=== PATIENT | female | born 1970 | race Caucasian/White ===

== ENCOUNTER 2017-07-11 02:46 | Observation (INO) ==
[2017-07-11 03:04] LABS: Basophils # 0.1 K/mm3 (0-0.2); Basophils % 0.6 % (0.1-2.0); Eosinophils # 0.9 K/mm3 (0.0-0.4); Eosinophils % 4.7 % (0.1-12.0); Hematocrit 43.5 % (37.0-47.0); Lymphocytes # 5.4 K/mm3 (0.7-4.5); Lymphocytes % 29.6 K/mm3 (10-50); Mean Corpuscular HGB Conc 32.1 g/dL (31.8-35.4); Mean Corpuscular Hemoglobin 31.8 pg (27.0-31.2); Monocytes # 0.8 K/mm3 (0.1-1.0); Monocytes % 4.6 % (1.7-9.3); Neutrophils # 11.1 K/mm3 (1.8-7.8); Neutrophils % 60.6 % (37.0-80.0); Platelet Count 425 K/mm3 (142-424); White Blood Count 18.3 K/mm3 (4.8-10.8)
[2017-07-11 03:06] LABS: Appearance,Urine CLEAR (Clear); Bilirubin,Urine Negative (Negative); Blood, Urine Negative (Negative); Color,Urine YELLOW (Yellow); Glucose,Urine (UA) Negative (Negative); Ketones,Urine Negative (Negative); Leukocyte Esterase,Urine Negative (Negative); Microscopic, Urine URINE MICROSCOPIC (MICROSCOPIC); PH,Urine 5.5 (5.0-8.5); Protein,Urine Negative (Negative); Urobilinogen,Urine 0.2 EU/dl (0.2)
[2017-07-11 03:11] LABS: Activated Partial Thrombo Time 23.6 seconds (23.6-34.0); INR 0.93 (0.9-1.1)
[2017-07-11 03:14] LABS: ABG Base Excess -0.2 mmol/L (-2.4-2.3); ABG HCO3 23.9 mmhg (22.0-26.0); ABG Oxygen Saturation 97 % (90-100); ABG PCO2 35.9 mmhg (35.0-45.0); ABG PH 7.44 mmol/L (7.35-7.45); ABG PO2 96.4 mmhg (80-100)
[2017-07-11 03:16] LABS: Allen's Test Patient Unable; Oxygen 21% %
[2017-07-11 03:20] LABS: Amphetamine/Metha Screen,Urine Negative ng/mL (<1000); Barbiturates Screen,Urine Negative ng/mL (<200); Benzodiazepines Screen,Urine Negative ng/mL (200); Cannabinoid Screen,Urine Negative ng/mL (<50); Cocaine Screen,Urine Negative ng/g (<300); Methadone Screen,Urine Negative ng/mL (<300); Opiate Screen,Urine Negative ng/mL (<300); Phencyclidine Screen,Urine Negative ng/mL (<25)
[2017-07-11 03:26] LABS: D-Dimer < 100 ng/mL (0-400)
[2017-07-11 03:37] LABS: Albumin/Globulin Ratio 1.1 (1.1-1.8); Anion Gap 14.1 mEq/L (5-15); Bilirubin,Total 0.1 mg/dL (0.2-1.0); Calcium 9.7 mg/dL (8.5-10.1); Creatine Kinase 65 U/L (26-192); Globulin 3.7 gm/dl (1.3-3.2); Potassium 4.1 mmoL/L (3.5-5.1); Salicylate 5.5 mg/dL (2.8-20.0); Total Protein,Serum 7.7 gm/dL (6.4-8.2)
[2017-07-11 03:43] LABS: Acetaminophen 0 ug/mL (10-30); Ethyl Alcohol 0 mg/dL (0-99)
[2017-07-11 04:37] LABS: Bacteria,Urine Trace /lpf; Squamous Epithelial Cell,Urine Occasional #/hpf (0-5); WBC,Urine Occasional #/hpf (0-3)
[2017-07-11 05:07] LABS: Lymphocytes % 17 % (10-50); Monocytes % 7 % (2-9); Neutrophils % 76 % (42-76); RBC Morphology Normal; Total Cells Counted 100
--- NOTE | 2017-07-11 05:43 | Emergency Department Note ---
ED Disposition Clinical Impression: Leukocytosis Altered mental status Qualifiers: Altered mental status type: unspecified Qualified Code(s): R41.82 - Altered mental status, unspecified Accidental overdose Qualifiers: Encounter type: initial encounter Qualified Code(s): T50.901A - Poisoning by unspecified drugs, medicaments and biological substances, accidental ( unintentional), initial encounter Disposition: Admitted As Inpatient Condition on Discharge: Fair Time of Disposition: 05:59 - Critical Care Critical Care Time: No Attestation: On 07/11/17, the high probability of a clinically significant, sudden or life threatening deterioration of the following system(s) required my full and direct attention, intervention and personal management. The time I documented below is in addition to time spent performing reported procedures but includes the following listed in this critical care notation. Medical Decision Making - Medical Records Medical records reviewed: Yes: I reviewed the patient's medical records. - Jose Francisco Inquiry Pt receiving controlled substance: No Vital Signs: 07/11/17 02:47 07/11/17 03:50 07/11/17 06:19 Temperature 98.7 F 98.7 F Temperature Source Oral Oral Pulse Rate 90 Pulse Rate [Right Radial] 115 H 92 H Respiratory Rate 20 18 20 Blood Pressure 124/70 Blood Pressure [Right Arm] 117/56 130/80 Blood Pressure Mean [Right Arm] 76 96 Blood Pressure Source [Right Arm] Automatic Cuff Blood Pressure Position [Right Arm] Supine 02 Sat by Pulse Oximetry 99 94 L Oxygen Delivery Method Nasal Cannula Room Air Oxygen Flow Rate (LPM) 2 - Lab Data Lab results reviewed: Yes: I reviewed the patient's lab results. Lab Results 07/11/17 02:40: PT 10.0, INR 0.93, APTT 23.6, D-Dimer < 100 07/11/17 02:40: Sodium 137, Potassium 4.1, Chloride 98, Carbon Dioxide 29, Anion Gap 14.1, BUN 17, Creatinine 0.84, Estimated Creat Clear 150, Estimated GFR 73, Est GFR ( Amer) 88, Glucose 124 H, Calcium 9.7, Total Bilirubin 0.1 L, AST 23, ALT 56, Alkaline Phosphatase 116, Total Protein 7.7, Albumin 4.0 , Globulin 3.7 H, Albumin/Globulin Ratio 1.1 07/11/17 02:40: B-Natriuretic Peptide 11 07/11/17 02:40: WBC 18.3 H, RBC 4.40, Hgb 14.0, Hct 43.5, MCV 99.0, MCH 31.8 H, MCHC 32.1, RDW 13.0, Plt Count 425 H, MPV 8.0, Neut % (Auto) 60.6, Lymph % (Auto ) 29.6, [place] % (Auto) 4.6, Eos % (Auto) 4.7, Baso % (Auto) 0.6, Neut # (Auto) 11.1 H, Lymph # (Auto) 5.4 H, [place] # (Auto) 0.8, Eos # (Auto) 0.9 H, Baso # ( Auto) 0.1, Total Counted 100, Neutrophils % (Manual) 76, Lymphocytes % (Manual) 17, Monocytes % (Manual) 7, Platelet Estimate Normal, RBC Morphology Normal 07/11/17 02:40: Total Creatine Kinase 65, CK-MB (CK-2) 0.6, CK-MB (CK-2) Rel Index 0.9, Troponin I < 0.02, Salicylates 5.5, Acetaminophen 0 L, Plasma/Serum Alcohol 0 07/11/17 02:40: Urine Color Yellow, Urine Appearance Clear, Urine pH 5.5, Ur Specific [place] 1.010, Urine Protein Negative, Urine Glucose (UA) Negative, Urine Ketones Negative, Urine Blood Negative, Urine Nitrate Negative, Urine Bilirubin Negative, Urine Urobilinogen 0.2, Ur Leukocyte Esterase Negative, Urine RBC None, Urine WBC Occasional, Ur Squamous Epith Cells Occasional, Urine Bacteria Trace 07/11/17 02:40: Urine Opiates Screen Negative, Ur Barbituates Screen Negative, Ur Phencyclidine Scrn Negative, Ur Amphetamines Screen Negative, U Methamphetamines Scrn Negative, U Benzodiazepines Scrn Negative, Urine Cocaine Screen Negative, U Marijuana (THC) Screen Negative 07/11/17 02:40: Serum HCG, Qual Negative 07/11/17 02:50: Specimen Source Right radial, O2 % 21%, ABG pH 7.44, ABG pCO2 35.9, ABG pO2 96.4, ABG HCO3 23.9, ABG Total CO2 25.0, ABG O2 Saturation 97, ABG Base Excess -0.2, Kenny Test Patient unable 07/11/17 03:15: Lactic Acid 2.3 H Result diagrams: 07/11/17 02:40 07/11/17 02:40 Orders (Tests/Meds): ED MEDICATIONS Generic Name Dose Route Start Last Admin Trade Name Freq PRN Reason Stop Dose Admin Lactated Ringer's 1,000 mls @ 125 mls/hr 07/11/17 06:29 Lactated Ringer's 1000 Ml Bag IV 08/10/17 06:28 .Q8H CHARLI Discontinued Medications Generic Name Dose Route Start Last Admin Trade Name Freq PRN Reason Stop Dose Admin Sodium Chloride 1,000 mls @ 999 mls/hr 07/11/17 03:15 07/11/17 03:26 Sod Chlor 0.9% 1000ml Bag IV 07/11/17 04:15 999 mls/hr .Q1H1M CHARLI Administration Sodium Chloride 1,000 mls @ 999 mls/hr 07/11/17 03:45 07/11/17 04:31 Sod Chlor 0.9% 1000ml Bag IV 07/11/17 04:45 999 mls/hr .Q1H1M CHARLI Administration Ondansetron HCl 4 mg 07/11/17 03:05 07/11/17 03:26 Zofran 4mg/2ml Vial IV 07/11/17 03:06 4 mg ONCE ONE Administration ORDERS Category Date Time Status CT head/brain wo con Stat Cat Scan 07/11/17 02:50 Taken XR chest portable Stat Exams 07/11/17 02:51 Taken Blood Culture Stat Micro 07/11/17 03:15 Received - Radiology Data #1 Image(s): Chest Image Reviewed: Yes I reviewed the patient's radiology results, Yes I reviewed the patient's radiology image, Yes I have reviewed radiologist's interpretation Preliminary Findings: Normal/NAD - CT Data CT Scan: Head Time Received: 04:[address] Reviewed: Yes: I have reviewed the patient's CT results, I have viewed the radiologist's interpretation Preliminary Findings: Normal/NAD - Physician Consults Physician Consulted: Dr. Greenfield covering for Dr. Kingsley Time: 06:02 Reason -: Admission, Pt condition - Reevaluation(s) Time: 06:01 Reevaluation #1: She was reevaluated, she continues to remain confused, and hallucinating. He believes Donato Dain is a president, and today's Friday. Boyfriend is advising that she keeps mumbling and making statements without any sense. Altered Mental Status HPI - General Chief Complaint: Altered Mental Status Stated Complaint: AMS Time Seen by Provider: 07/11/17 02:55 Mode of Arrival: EMS Source of Information: Significant Other Limitations: Altered Mental Status Description of Symptoms (Recalled from ER Triage Doc. by RN): PT PRESENTS TO ED WITH ALTERED MENTAL STATUS, POSSIBLE OVERDOSE, UNKNOWN SUBSTANCE. EMS BROUGHT FLEXERIL, METFORMIN, AND LISINOPRIL BOTTLES FROM HOME. - History of Present Illness HPI narrative: This is a 46-year-old female patient brought in by EMS after louiend called 911 because patient was hallucinating and acting confused, after taking 5 Dramamine pills, mixed with couple of laxatives. Patient has been dizzy for the past couple of days and she has been taking an uncertain amount of lrkg-[id number] vertigo pills (Dramamine), in excess number of the prescribing instructions. Boyfriend denies any previous similar episodes, in the past. He also advised that the patient is a recovering alcoholic, who he has not had any alcoholic beverage in 1 week. Upon arrival to the emergency room the patient is somnolent , lethargic, mumbling words, arousable with loud voice. MD complaint: altered mental status Onset (ago): hour(s) (2) Timing confirmed by: other (boyfriend) Severity: moderate Consistency of symptoms: constant Context: other (Accidental medication overdose) Treatments prior to arrival: other (iv narcane, no effect) - Related Data Home Medications Medication Instructions Recorded Confirmed Unobtainable [Unobtainable] 07/11/17 07/11/17 Allergies Allergy/AdvReac Type Severity Reaction Status Date / Time Penicillins [PENICILLINS] Allergy Unknown UNKNOWN Unverified 03/25/17 14:33 [facility] History I have reviewed the patient's past medical history: Yes Medical History: Reports:: Diabetes Mellitus Type 2 - Social History Smoking Status: Current every day smoker Alcohol Intake: never - Psychiatric History Expresses thoughts of harming self/others: None Suicide Plan Description: No Plan ROS Obtained: Yes unobtainable due to mental condition - Neurologic Neurologic: Reports system reviewed and no additional complaints, except as docu , Reports as per HPI, Reports other (altered mental status) Physical Exam - General General appearance: alert, other (somnolent) - Head Head exam: atraumatic, normocephalic, normal inspection - Eye Eye exam: Present: normal appearance, PERRL, EOMI, other (nornal fundi) - Neck Neck exam: Present: normal inspection, full ROM, trachea midline. Absent: meningismus, lymphadenopathy - Chest Chest inspection: Present: normal inspection, symmetric chest wall rise. Absent : tenderness - Respiratory Respiratory exam: Present: normal lung sounds bilaterally. Absent: respiratory distress - Cardiovascular Cardiovascular exam: Present: regular rate, normal rhythm. Absent: JVD - Abdominal Exam Abdominal exam: Present: soft, normal bowel sounds. Absent: distention, tenderness, guarding - Extremities Exam Extremities exam: Present: normal inspection, full ROM, normal capillary refill. Absent: calf tenderness - Neurological Exam Neurological exam: Present: alert, other (confused, hallucinating) - Psychiatric Psychiatric exam: Present: depressed, flat affect - Skin Skin exam: Present: warm, dry, intact, normal color
--- NOTE | 2017-07-11 07:45 | Pharmacy Consult Notes ---
[facility] Pharmacy VTE Monitoring - Patient Demographics Admission date: 07/10/17 Report Date: 07/11/17 Time: 07:45 Allergies/Adverse Reactions: Patient Allergies Penicillins [PENICILLINS] Allergy (Unknown, Verified 07/11/17 06:37) UNKNOWN REACTION Height: 1.63 m Weight: 91.5 kg Patient Problems: Current Active Problems Altered mental status (Acute) Accidental overdose (Acute) Leukocytosis (Acute) - VTE Risk Labs: VTE Related Lab Results Hgb 14.0 g/dL (12.2-16.2) 07/11/17 02:40 Hct 43.5 % (37.0-47.0) 07/11/17 02:40 Plt Count 425 K/mm3 (142-424) H 07/11/17 02:40 PT 10.0 seconds (9.4-11.8) 07/11/17 02:40 INR 0.93 (0.9-1.1) 07/11/17 02:40 APTT 23.6 seconds (23.6-34.0) 07/11/17 02:40 BUN 17 mg/dL (7-18) 07/11/17 02:40 Creatinine 0.84 mg/dL (0.55-1.02) 07/11/17 02:40 Estimated Creat Clear 150 mL/min (0-300) 07/11/17 02:40 Was VTE Risk Assessment Performed: Yes VTE Score: 3 VTE Risk Level: Low Risk Clinical Trial Participant: No - Prophylaxis VTE Prophylaxis Ordered?: Yes Types of VTE Prophylaxis: TEDS Knee High
--- NOTE | 2017-07-11 16:26 | History & Physical Report ---
*Admission Date: 07/10/17 *Chief complaint: accidental overdose *History of present illness: 46 yr old female presents to ed for accidental overdose, Pt states she was dizzy and nausea and took peto mesmol and the took deramine to help with dizziness and forgot she had already took them. pt reports this was not to harm herself. no si or hi. [facility] History I have reviewed the patient's past medical history: Yes Medical History: Reports:: Diabetes Mellitus Type 2, Hypertension - *Social History Educational Level: Completed High School Smoking Status: Current every day smoker Tobacco Type: cigarettes Alcohol Intake: never Occupational Status: employed - Psychiatric History Expresses thoughts of harming self/others: None Suicide Plan Description: No Plan *Family Hx:: Unable to obtain Review of Systems - Constitutional Denies fatigue - Eyes Denies change in vision - ENT Denies change in voice - *Cardiovascular Denies chest pain with activity - *Respiratory Denies chest congestion - *Gastrointestinal Denies change in bowel habits - *Genitourinary Denies prolapse symptoms - *Musculoskeletal Denies limited joint movement - Integumentary/Breasts Denies rash - *Neurologic Reports dizziness, Reports other (altered mental status) - Psychiatric Denies lack of enjoyment - Endocrine Denies flushing - Hematologic/Lymphatic Denies enlarged lymph nodes - Allergic/Immunologic Denies lip swelling Meds Home Medications Medication Instructions Recorded Confirmed Type Aspirin [Aspir-Low] 81 mg PO DAILY 07/11/17 07/11/17 History Carvedilol [Carvedilol 12.5mg Tab] 12.5 mg PO DAILY 07/11/17 07/11/17 History Clopidogrel Bisulfate [Plavix 75mg 75 mg PO DAILY 07/11/17 07/11/17 History Tab] Cyclobenzaprine HCl 10 mg PO TIDP PRN 07/11/17 07/11/17 History [Cyclobenzaprine 10mg Tab] Gabapentin [Neurontin 600mg 600 mg PO TID 07/11/17 07/11/17 History tablet] Lisinopril [Lisinopril 2.5mg Tab] 2.5 mg PO DAILY 07/11/17 07/11/17 History Metformin HCl [Metformin 500mg 500 mg PO BID 07/11/17 07/11/17 History Tablet] Omeprazole [Omeprazole 40mg 40 mg PO DAILY 07/11/17 07/11/17 History Capsule] Spironolactone [Spironolactone 25 mg PO BID 07/11/17 07/11/17 History 25mg Tab] Allergies Allergy/AdvReac Type Severity Reaction Status Date / Time Penicillins [PENICILLINS] Allergy Unknown UNKNOWN Verified 07/11/17 06:37 REACTION Exam Vital signs and Labs for Last 24 Hours: Temp Pulse Resp BP Pulse Ox 98.2 F 90 16 132/69 96 07/11/17 16:00 07/11/17 16:00 07/11/17 16:00 07/11/17 16:00 07/11/17 16:00 Laboratory Results - last 24 hr 07/11/17 07:35: Lactic Acid Fup @ 4Hr 1.6 I & O for Last 24 hours: Intake & Output 07/09/17 07/10/17 07/11/17 07/12/17 11:59 11:59 11:59 11:59 Output Total 2400 / 2400 Balance -2400 / -2400 Weight 201 lb 11.567 oz - Constitutional no acute distress - *Routine HEENT Exam Head: Present: normocephalic Eye: Present: PERRL ENT: Present: mucous membranes moist - *Routine Neck Exam Present: supple, full ROM - *Routine Respiratory Exam Present: CTA bilaterally - *Routine Cardiovascular Exam Present: RRR - *Routine Abdominal Exam Present: soft, normoactive bowel sounds - *Routine Skin Exam Present: intact - *Routine Neurological Exam Present: alert, oriented X3, CN II-XII intact - Routine Psychiatric Exam Present: normal affect, normal thought process Assessment and Plan - Assessment and plan all Dx Assessment and Plan for all problems:: will contiune iv fluids, remove ram, contiune to monitor
[2017-07-12 07:07] LABS: Basophils # 0.1 K/mm3 (0-0.2); Basophils % 0.7 % (0.1-2.0); Eosinophils # 0.6 K/mm3 (0.0-0.4); Eosinophils % 4.9 % (0.1-12.0); Hematocrit 39.9 % (37.0-47.0); Hemoglobin 12.9 g/dL (12.2-16.2); Lymphocytes # 5.5 K/mm3 (0.7-4.5); Lymphocytes % 41.4 K/mm3 (10-50); Mean Corpuscular HGB Conc 32.2 g/dL (31.8-35.4); Mean Corpuscular Hemoglobin 32.2 pg (27.0-31.2); Mean Platelet Volume 7.9 fl (7.4-10.4); Monocytes # 0.6 K/mm3 (0.1-1.0); Monocytes % 4.3 % (1.7-9.3); Neutrophils # 6.5 K/mm3 (1.8-7.8); Neutrophils % 48.7 % (37.0-80.0); Platelet Count 335 K/mm3 (142-424); Red Blood Count 3.99 M/mm3 (4.20-5.40); White Blood Count 13.2 K/mm3 (4.8-10.8)
[2017-07-12 07:12] LABS: Albumin Level 3.4 gm/dL (3.4-5.0); Anion Gap 11.2 mEq/L (5-15); Bilirubin,Total 0.1 mg/dL (0.2-1.0); Calcium 9.1 mg/dL (8.5-10.1); Globulin 3.3 gm/dl (1.3-3.2); Potassium 4.2 mmoL/L (3.5-5.1); Total Protein,Serum 6.7 gm/dL (6.4-8.2)
--- NOTE | 2017-07-12 08:06 | Discharge Summary ---
General - General Admission date: 07/10/17 Discharge date: 07/12/17 HPI HPI: 46 yr old female presents to ed for accidental overdose, Pt states she was dizzy and nausea and took peto mesmol and the took deramine to help with dizziness and forgot she had already took them. pt reports this was not to harm herself. no si or hi. Hospital Course Hospital Course: pt slowly improved and is at baseline this am and will be released to home and followed up in office Objective Vital signs: Temp Pulse Resp BP Pulse Ox 97.4 F L 91 H 16 142/65 96 07/12/17 04:00 07/12/17 04:00 07/12/17 04:00 07/12/17 04:00 07/12/17 04:00 no acute distress - *Routine HEENT Exam Head: Present: normocephalic Eye: Present: EOMI, PERRL ENT: Absent: mucous membranes dry - *Routine Neck Exam Present: supple - *Routine Respiratory Exam Present: CTA bilaterally - *Routine Cardiovascular Exam Present: RRR, murmur - *Routine Abdominal Exam Present: soft - *Routine Extremities Exam Absent: full ROM - *Routine Skin Exam Present: intact - *Routine Neurological Exam Present: alert, oriented X3, CN II-XII intact - Routine Psychiatric Exam Present: normal affect Results Labs on day of discharge: Labs from last 24 hours 07/12/17 07/12/17 07/11/17 06:30 06:30 07:35 WBC 13.2 H D RBC 3.99 L Hgb 12.9 Hct 39.9 MCV 100.0 H MCH 32.2 H MCHC 32.2 RDW 13.0 Plt Count 335 MPV 7.9 Neut % (Auto) 48.7 Lymph % (Auto) 41.4 [place] % (Auto) 4.3 Eos % (Auto) 4.9 Baso % (Auto) 0.7 Neut # (Auto) 6.5 Lymph # (Auto) 5.5 H [place] # (Auto) 0.6 Eos # (Auto) 0.6 H Baso # (Auto) 0.1 Sodium 140 Potassium 4.2 Chloride 101 Carbon Dioxide 32 Anion Gap 11.2 BUN 13 Creatinine 0.75 Estimated Creat Clear 135 Estimated GFR 83 Est GFR ( Amer) 101 Glucose 142 H Lactic Acid Fup @ 4Hr 1.6 Calcium 9.1 Total Bilirubin 0.1 L AST 15 D ALT 44 Alkaline Phosphatase 108 Total Protein 6.7 Albumin 3.4 D Globulin 3.3 H Albumin/Globulin Ratio 1.0 L DS: Diagnosis - Discharge Diagnosis (1) Accidental overdose Status: Resolved Discharge Plan - Patient Discharge Instructions ACTIVITY: Continue current activity DIET: continue same diet - Follow up Plan Disposition: Home, Self-Retirement Medications: Home Medications Medication Instructions Recorded Confirmed Type Aspirin [Aspir-Low] 81 mg PO DAILY 07/11/17 07/11/17 History Carvedilol [Carvedilol 12.5mg Tab] 12.5 mg PO DAILY 07/11/17 07/11/17 History Clopidogrel Bisulfate [Plavix 75mg 75 mg PO DAILY 07/11/17 07/11/17 History Tab] Cyclobenzaprine HCl 10 mg PO TIDP PRN 07/11/17 07/11/17 History [Cyclobenzaprine 10mg Tab] Gabapentin [Neurontin 600mg 600 mg PO TID 07/11/17 07/11/17 History tablet] Lisinopril [Lisinopril 2.5mg Tab] 2.5 mg PO DAILY 07/11/17 07/11/17 History Metformin HCl [Metformin 500mg 500 mg PO BID 07/11/17 07/11/17 History Tablet] Omeprazole [Omeprazole 40mg 40 mg PO DAILY 07/11/17 07/11/17 History Capsule] Spironolactone [Spironolactone 25 mg PO BID 07/11/17 07/11/17 History 25mg Tab] Prescriptions/Medication Reconciliation: Continue Omeprazole [Omeprazole 40mg Capsule] 40 mg PO DAILY Lisinopril [Lisinopril 2.5mg Tab] 2.5 mg PO DAILY Gabapentin [Neurontin 600mg tablet] 600 mg PO TID Cyclobenzaprine HCl [Cyclobenzaprine 10mg Tab] 10 mg PO TIDP PRN PRN Reason: muscle spasms Clopidogrel Bisulfate [Plavix 75mg Tab] 75 mg PO DAILY Carvedilol [Carvedilol 12.5mg Tab] 12.5 mg PO DAILY Aspirin [Aspir-Low] 81 mg PO DAILY Metformin HCl [Metformin 500mg Tablet] 500 mg PO BID No Action Spironolactone [Spironolactone 25mg Tab] 25 mg PO BID
== END 2017-07-12 09:15 | disposition home or self-care (01) ==
LOC: ER 02:46 → 2ND 02:46
PROVIDERS: ADMIT Family Medicine; ATTEND Emergency Medicine

== ENCOUNTER → 2019-12-06 09:33 | Outpatient (CLI) | payer OTHER, SELFPAY ==
--- NOTE | 2019-12-06 | CA_ITS ---
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 Laterality: Bilateral Indications: HTN, hyperlipidemia, DM, smoker, CAD, TIA 12/01/19 Risk Factors Hypertension: Hyperlipidemia Smoking Doppler Spectral Velocity Analysis ECA (R) 67.60/7.30 cm/s ECA (L) 74.50/18.80 cm/s dICA (R) 82.30/32.90 cm/s dICA (L) 81.90/31.80 cm/s Nancy (R) 62.90/26.20 cm/s Nancy (L) 100.20/40.50 cm/s pICA (R) 64.30/19.50 cm/s pICA (L) 79.90/30.80 cm/s dCCA (R) 68.70/20.50 cm/s dCCA (L) 87.60/27.90 cm/s pCCA (R) 88.00/22.50 cm/s pCCA (L) 121.40/27.00 cm/s Vert (R) 47.90/14.20 cm/s Vert (L) 60.00/22.30 cm/s ICA/CCA 1.20 ICA/CCA 1.14 Findings Duplex evaluation demonstrates stenosis of the right proximal internal carotid artery <20% with PSV <140 cm/sec, EDV <100 cm/sec, and IC/CC Ratio <4.0. The left carotid arterial system appeared to be normal without stenosis of the bulb or internal carotid artery. Conclusion Duplex evaluation demonstrates stenosis of the right proximal internal carotid artery <20% with PSV <140 cm/sec, EDV <100 cm/sec, and IC/CC Ratio <4.0. The left carotid arterial system appeared to be normal without stenosis of the bulb or internal carotid artery. Electronically signed by : Kenny Morfin MD 12/06/2019 17:11:31
--- NOTE | 2019-12-06 10:07 | MR_ITS ---
PROCEDURE: MR HEAD/BRAIN WO/W CON CLINICAL INDICATION: TIA, DIPLOPIA PT. C/O LEFT SIDED FACIAL NUMBNESS AND WEAKNESS. COMPARISON: CT HEADWO CT head/brain wo con from 01/07/2018 TECHNIQUE: Routine multiplanar multi echo sequences are performed without gadolinium enhancement. FINDINGS: No midline shift, mass effect, intracranial hemorrhage, or hydrocephalus is evident. The cerebellopontine angles, cerebellum, and brainstem have an unremarkable appearance. There is only minimal T2 white matter hyperintensity in the right occipital lobe. The pituitary, optic chiasm, corpus callosum, and craniocervical junction have an unremarkable appearance. No mastoid effusion or sinus air-fluid level. There is a small area of contrast enhancement in the central aspect of the right cerebellum inferiorly and could be due to small developmental venous anomaly.. No mastoid effusion or sinus air-fluid level. IMPRESSION: 1. No acute intracranial findings. 2. Possible small developmental venous anomaly of the right cerebellar hemisphere. Consider six-month follow-up to confirm short term stability Dictated by: Kenny Morfin MD 12/07/2019 11:39 Kenny Morfin MD in [place] 12/07/2019 11:39
[2019-12-06 10:53] LABS: Blood Urea Nitrogen 12 mg/dl (7-17); Estimated Glomerular Filt Rate 106 ml/min (>60); GFR (African American) 129 ML/MIN (>60)
== END ==
PROVIDERS: PCP Family Medicine; Visit Provider Family Medicine
DX: G45.9 Transient cerebral ischemic attack, unspecified (principal); H53.2 Diplopia; I10 Essential (primary) hypertension
CPT/HCPCS: 36415; 70553; 82565; 84520; 93880; A9576

== ENCOUNTER 2021-10-03 14:00 | Outpatient (RCR) | payer OTHER, SELFPAY | END 2021-10-03 14:05 | disposition home or self-care (01) | LOC: PT 14:00 | PROVIDERS: Visit Provider Family Medicine | DX: M62.838 Other muscle spasm (principal); M25.512 Pain in left shoulder | CPT/HCPCS: 97163 ==

== ENCOUNTER 2022-01-20 20:31 | Emergency (ER) | payer OTHER, SELFPAY ==
[2022-01-20 20:25] VITALS: BP 148/81; PULSE 87; RESP 16; TEMP 36.7; O2SAT 97; BMI 36.0
--- NOTE | 2022-01-20 20:29 | XR_ITS ---
PROCEDURE INFORMATION: Exam: XR Chest Exam date and time: 01/20/2022 9:16 PM Age: 51 years old Clinical indication: Injury or trauma; Fall; Blunt trauma (contusions or hematomas) TECHNIQUE: Imaging protocol: Radiologic exam of the chest. Views: 1 view. COMPARISON: CR CXR2V XR chest 2V 01/07/2018 6:30 PM FINDINGS: Lungs: Unremarkable. No consolidation. Pleural spaces: Unremarkable. No pleural effusion. No pneumothorax. Heart/Mediastinum: Unremarkable. No cardiomegaly. Bones/joints: Unremarkable. IMPRESSION: No acute cardiopulmonary abnormality.
--- NOTE | 2022-01-20 20:29 | CT_ITS ---
PROCEDURE INFORMATION: Exam: CT Cervical Spine Without Contrast Exam date and time: 01/20/2022 9:14 PM Age: 51 years old Clinical indication: Injury or trauma; Fall; Blunt trauma TECHNIQUE: Imaging protocol: Computed tomography of the cervical spine without contrast. Radiation optimization: All CT scans at this facility use at least one of these dose optimization techniques: automated exposure control; mA and/or kV adjustment per patient size (includes targeted exams where dose is matched to clinical indication); or iterative reconstruction. COMPARISON: CT HEAD/BRAIN WO CON 01/20/2022 9:11 PM FINDINGS: Bones/joints: Loss of normal curvature of the spine with degenerative spondylolisthesis. No evidence of acute compression fracture or deformity in the cervical spine. No displaced fracture involving the vertebral bodies or their posterior elements. . Facet joints are normally aligned without facetal dislocation or subluxation. No fracture of the dens, lateral C1-C2 articulation, atlantooccipital joints and central atlantodental joint are unremarkable. Chronic degenerative changes in the visualized cervical spine. Lungs: Scarring, emphysema and pleural thickening in the lung apices. Soft tissues: Pre-and paravertebral soft tissues are grossly normal. IMPRESSION: Chronic degenerative changes without an acute cervical spine injury or abnormality.
--- NOTE | 2022-01-20 20:29 | CT_ITS ---
PROCEDURE INFORMATION: Exam: CT Head Without Contrast Exam date and time: 01/20/2022 9:11 PM Age: 51 years old Clinical indication: Injury or trauma; Fall; Blunt trauma (contusions or hematomas) TECHNIQUE: Imaging protocol: Computed tomography of the head without contrast. Radiation optimization: All CT scans at this facility use at least one of these dose optimization techniques: automated exposure control; mA and/or kV adjustment per patient size (includes targeted exams where dose is matched to clinical indication); or iterative reconstruction. COMPARISON: No relevant prior studies available. FINDINGS: Brain: Normal appearing brain parenchyma without intraparenchymal hemorrhage and normal sheth-white matter differentiation/no obvious acute ischemic stroke. No intra-or extra-axial fluid collection, no supra-or infratentorial mass, no mass effect or midline shift. Cerebral ventricles: Ventricles, sulci and basal cisterns are normal in size without hydrocephalus. Paranasal sinuses: No significant mucoperiosteal thickening in the visualized paranasal sinuses. Mastoid air cells: No mastoid effusion. Bones/joints: Visualized skull bones are grossly normal. Soft tissues: NA IMPRESSION: No evidence of an acute intracranial hemorrhage, mass lesion or obvious acute ischemic infarction.
--- NOTE | 2022-01-20 20:29 | XR_ITS ---
PROCEDURE INFORMATION: Exam: XR Pelvis Exam date and time: 01/20/2022 9:15 PM Age: 51 years old Clinical indication: Injury or trauma; Fall; Blunt trauma (contusions or hematomas); Bilateral; Pelvic region TECHNIQUE: Imaging protocol: Radiologic exam of the pelvis. Views: 1 or 2 view. COMPARISON: ABDPELW CT abdomen pelvis w con 01/22/2018 10:54 AM FINDINGS: Bones/joints: No acute bony injury. Lumbar facet arthropathy is noted with degenerative anterolisthesis of L4 on L5. Minimal sacroiliac degenerative change. Soft tissues: Unremarkable. Organs: Exam demonstrates features of prior cholecystectomy. No biliary tree dilation or high-density retained stones appreciated. Left adrenal demonstrates a low-attenuation nodule measuring 2.1 cm maximal diameter, unchanged from 2016. Subtle fusiform thickening of the right adrenal is stable. Kidneys enhance symmetrically without evidence of focal injury. No obstruction or inflammation in either kidney. Indeterminate 1.8 cm cyst projects anteriorly from the lower pole of the left kidney. Vasculature: Normal caliber aorta with minimal calcific plaque. Other findings: Clear basilar lung parenchyma. No pleural fluid. Normal heart size. IMPRESSION: 1. No acute traumatic change demonstrated in the abdomen or pelvis. 2. Indeterminate 1.8 cm cyst projects from the lower pole of the left kidney. Consider nonemergent renal mass protocol CT or MR for further characterization.
--- NOTE | 2022-01-20 20:30 | HMH.EDFALL ---
Discharge Plan Disposition Patient Disposition: Left Against Medical Advice Chief Complaint: Fall Prescriptions Prescriptions: No Action lisinopril 2.5 mg tablet 2.5 mg PO DAILY Qty: 30 0RF peg 3350-electrolytes [Golytely] 236-22.74-6.74 -5.86 gram recon soln 240 ml PO Q10M Qty: 4000 0RF Rx Instructions: until fecal effluent is clear gabapentin 600 Tablet 600 mg PO TID Label Comments: carvedilol 12.5 Tablet 12.5 mg PO DAILY Label Comments: clopidogrel 75 Tablet 75 mg PO DAILY Label Comments: omeprazole 40 Capsule.Dr 40 mg PO DAILY Label Comments: aspirin [Aspir-Low] 81 MG Tablet.Dr 81 mg PO DAILY spironolactone 25 Tablet 25 mg PO BID Label Comments: metformin 500 MG Tablet 500 mg PO BID ondansetron 4 MG tablet,disintegrating 4 mg PO Q8HP PRN (Reason: Nausea) Qty: 6 0RF Clinical Impressions Clinical Impression: Fall, Alcohol intoxication, Anxiety Instructions Patient Instructions: DI for Alcohol Use Disorder Discharge ED Provider: Troy Kingsley Fall HPI General Chief Complaint: Fall Stated Complaint: fall Time Seen by Provider: 01/20/22 20:30 Mode of Arrival: EMS Source of Information: Patient, EMS and Medical Record Limitations: No Limitations Description of Symptoms (Recalled from ER Triage Doc. by RN): EMS called out for a fall. pt found on front porch and doesn;t remember falling. pt c/o neck pain History of Present Illness HPI Narrative: pt with reported fall but could not give details - pt w/o specific c/o - MD complaint: fall Onset (ago): unknown Fall witnessed: no Place fall occurred: home Loss of consciousness: unsure Prolonged down time: unclear Symptoms prior to fall: none Context: alcohol use Location of injury: head and neck Severity: moderate Related Data Home Medications Medication Instructions Recorded Confirmed aspirin 81 mg tablet,delayed 81 mg PO DAILY heart 07/11/17 12/08/17 release (Aspir-Low) carvedilol 12.5 mg tablet 12.5 mg PO DAILY blood pressure 07/11/17 12/08/17 clopidogrel 75 mg tablet 75 mg PO DAILY heart 07/11/17 12/08/17 gabapentin 600 mg tablet 600 mg PO TID Pain 07/11/17 12/08/17 metformin 500 mg tablet 500 mg PO BID Diabetes 07/11/17 12/08/17 omeprazole 40 mg capsule,delayed 40 mg PO DAILY GERD 07/11/17 12/08/17 release spironolactone 25 mg tablet 25 mg PO BID diuretic 07/11/17 12/08/17 Previous Rx's Medication Instructions Recorded lisinopril 2.5 mg tablet 2.5 mg PO DAILY blood pressure #30 09/12/17 tabs ondansetron 4 mg disintegrating 4 mg PO Q8HP PRN Nausea ##6 01/22/18 tablet peg 3350-electrolytes 236 240 ml PO Q10M #4,000 mL 12/17/21 gram-22.74 gram-6.74 gram-5.86 gram solution (Golytely) Allergies Allergy/AdvReac Type Severity Reaction Status Date / Time Penicillins [PENICILLINS] Allergy Unknown UNKNOWN Verified 12/08/17 05:45 REACTION PFSH PFSH Social History Smoking Status: Current every day smoker tobacco type: cigarettes packs per day: 1 alcohol intake: never substance use type: marijuana current occupational status: employed Travel in the last 8 weeks: None ROS Obtained: Yes All systems reviewed & no additional complaints except as documented Constitutional Constitutional: Denies fever(s) and Denies headache(s) Eyes Eyes: Denies diplopia ENT Ears, Nose, Mouth, and Throat: Denies headache(s) and Reports neck pain Cardiovascular Cardiovascular: Denies chest pain with activity Respiratory Respiratory: Denies shortness of breath and Denies chest congestion Gastrointestinal Gastrointestingal: Denies abdominal pain Genitourinary Female Genitourinary: Denies hematuria Musculoskeletal Musculoskeletal: Reports as per HPI, Denies abnormal gait, Denies back pain and Reports neck pain Integumentary/Breasts Skin/Breast: Denies jaundice Neurologic Neurologic: Denies abnormal gait and Denies
[2022-01-20 20:38] LABS: Basophils # 0.2 K/mm3 (0-0.2); Basophils % 1.7 % (0.1-2.0); Eosinophils # 0.2 K/mm3 (0.0-0.4); Eosinophils % 1.1 % (0.1-12.0); Hematocrit 46.1 % (37.0-47.0); Hemoglobin 15.1 g/dL (12.2-16.2); Lymphocytes # 4.7 K/mm3 (0.7-4.5); Lymphocytes % 34.5 % (10-50); Mean Corpuscular HGB Conc 32.8 g/dL (31.8-35.4); Mean Corpuscular Hemoglobin 33.7 pg (27.0-31.2); Mean Corpuscular Volume 102.8 fl (81-99); Monocytes # 0.6 K/mm3 (0.1-1.0); Monocytes % 4.3 % (1.7-9.3); Neutrophils % 58.4 % (37.0-80.0); Platelet Count 318 K/mm3 (142-424); Red Blood Count 4.48 M/mm3 (4.20-5.40); Red Cell Distribution Width 13.5 % (11.5-17.5); White Blood Count 13.7 K/mm3 (4.8-10.8)
[2022-01-20 20:39] LABS: Chloride 102 mmol/L (98-107); Sodium 143 mmol/L (136-145)
[2022-01-20 20:40] LABS: POC Glucose,Bedside 123 (70-110)
[2022-01-20 20:40] LABS: Potassium 3.2 mmoL/L (3.5-5.1)
[2022-01-20 20:42] LABS: Alanine Aminotransferase 87 U/L (12-78); Alkaline Phosphatase 114 U/L (38-126); Anion Gap 19.2 mEq/L (5-15); Aspartate Amino Transferase 122 U/L (14-36); Bilirubin,Total 0.4 mg/dl (0.2-1.3); Blood Urea Nitrogen 8 mg/dl (7-17); Carbon Dioxide 25 mmol/L (22.0-30.0); Creatinine Clearance Estimated 167 mL/min (50-200); Estimated Glomerular Filt Rate 105 ml/min (>60); Ethyl Alcohol 279 mg/dl (0-10); GFR (African American) 128 ML/MIN (>60)
[2022-01-20 20:43] LABS: Albumin Level 4.4 g/dl (3.5-5.0); Albumin/Globulin Ratio 1.4 (1.1-1.8); Calcium 8.4 mg/dl (8.4-10.2); Globulin 3.1 g/dL (1.3-3.2); Glucose 140 mg/dl (74-100); Total Protein,Serum 7.5 g/dl (6.3-8.2)
[2022-01-20 22:39] VITALS: BP 137/78; PULSE 81; RESP 16; TEMP 36.7; O2SAT 97
== END 2022-01-20 22:41 | disposition left against medical advice (07) ==
PROVIDERS: Emergency Provider Emergency Medicine; PCP Family Medicine
DX: F10.129 Alcohol abuse with intoxication, unspecified (principal); M54.2 Cervicalgia; R11.0 Nausea; K21.9 Gastro-esophageal reflux disease without esophagitis; F41.9 Anxiety disorder, unspecified; F17.210 Nicotine dependence, cigarettes, uncomplicated; Z79.02 Long term (current) use of antithrombotics/antiplatelets; Z79.82 Long term (current) use of aspirin; Z79.84 Long term (current) use of oral hypoglycemic drugs; Z79.899 Other long term (current) drug therapy; Z88.0 Allergy status to penicillin
CPT/HCPCS: 70450; 71045; 72125; 72170; 80053; 82962; 85025; 99285

== ENCOUNTER 2022-08-26 03:24 | Emergency (ER) | payer OTHER, SELFPAY ==
[2022-08-26 03:26] VITALS: BP 152/85; PULSE 80; RESP 17; TEMP 37; O2SAT 96
[2022-08-26 04:00] VITALS: PULSE 76; RESP 20; O2SAT 95
[2022-08-26 04:19] LABS: Basophils # 0.1 K/mm3 (0-0.2); Eosinophils # 0.2 K/mm3 (0.0-0.4); Eosinophils % 1.6 % (0.1-12.0); Hematocrit 52.5 % (37.0-47.0); Hemoglobin 17.2 g/dL (12.2-16.2); Lymphocytes # 4.3 K/mm3 (0.7-4.5); Lymphocytes % 40.1 % (10-50); Mean Corpuscular HGB Conc 32.6 g/dL (31.8-35.4); Mean Corpuscular Hemoglobin 32.6 pg (27.0-31.2); Mean Corpuscular Volume 99.9 fl (81-99); Mean Platelet Volume 8.3 fl (7.4-10.4); Monocytes # 0.6 K/mm3 (0.1-1.0); Monocytes % 5.5 % (1.7-9.3); Neutrophils # 5.6 K/mm3 (1.8-7.8); Neutrophils % 51.9 % (37.0-80.0); Platelet Count 316 K/mm3 (142-424); Red Blood Count 5.26 M/mm3 (4.20-5.40); Red Cell Distribution Width 13.8 % (11.5-17.5); White Blood Count 10.8 K/mm3 (4.8-10.8)
[2022-08-26 04:20] LABS: Chloride 100 mmol/L (98-107); Potassium 3.3 mmoL/L (3.5-5.1); Sodium 140 mmol/L (136-145)
[2022-08-26 04:22] LABS: Blood Urea Nitrogen 5 mg/dl (7-17); Creatinine Clearance Estimated 139 mL/min (50-200); Estimated Glomerular Filt Rate 105 ml/min (>60); GFR (African American) 128 ML/MIN (>60)
[2022-08-26 04:23] LABS: Anion Gap 12.3 mEq/L (5-15); Calcium 9.2 mg/dl (8.4-10.2); Carbon Dioxide 31 mmol/L (22.0-30.0); Glucose 124 mg/dl (74-100)
--- NOTE | 2022-08-26 04:24 | CT_ITS ---
PROCEDURE INFORMATION: Exam: CT Maxillofacial Without Contrast, Sinus Exam date and time: 08/26/2022 4:35 AM Age: 51 years old Clinical indication: Eye pain and face pain; Right; Additional info: Pain, R eye swelling TECHNIQUE: Imaging protocol: CT Maxillofacial without contrast. Focus on the sinuses. Radiation optimization: All CT scans at this facility use at least one of these dose optimization techniques: automated exposure control; mA and/or kV adjustment per patient size (includes targeted exams where dose is matched to clinical indication); or iterative reconstruction. REPORTING DATA: Count of CT and Cardiac NM exams in prior 12 months: This patient has received 2 known CTs and 0 known cardiac nuclear medicine studies in the 12 months prior to the current study. COMPARISON: CT HEAD/BRAIN WO CON 01/20/2022 9:11 PM FINDINGS: Frontal sinuses: Normal. No air-fluid levels. Ethmoid sinuses: Normal. No air-fluid levels. Sphenoid sinuses: Normal. No air-fluid levels. Maxillary sinuses: Normal. No air-fluid levels. Ostiomeatal units are patent. Nasal cavity: Unremarkable. Orbital cavities: Orbits are normal. Globes are unremarkable. Bones/joints: Unremarkable. Soft tissues: Unremarkable. IMPRESSION: Unremarkable sinuses. There is moderate motion related artifact which may reduce sensitivity for smaller fractures.
--- NOTE | 2022-08-26 04:30 | HMH.EDGENADL ---
Discharge Plan Disposition Patient Disposition: Home, Self-Care Prescriptions Prescriptions: New cefdinir [cefdinir] 300 mg capsule 300 mg PO BID Qty: 14 0RF cefdinir [cefdinir] 300 mg capsule 300 mg PO BID Qty: 14 0RF No Action Ozempic 0.25 mg or 0.5 mg (2 mg/3 mL) pen injector 0.25 mg SQ WEEKLY Rx Instructions: for 4 weeks lisinopril 10 mg tablet 10 mg PO DAILY Farxiga 10 mg tablet 10 mg PO DAILY trazodone 50 mg tablet 100 mg PO HS gabapentin 600 tablet 600 mg PO TID Label Comments: clopidogrel 75 tablet 75 mg PO DAILY Label Comments: omeprazole 40 capsule,delayed release(DR/EC) 40 mg PO DAILY Label Comments: aspirin [Aspir-Low] 81 MG tablet,delayed release (DR/EC) 81 mg PO DAILY metformin 500 mg tablet 1,000 mg PO BID Referrals Follow up/Referrals: Ortega Zheng MD [Physician] - See instructions Bryce Greenfield MD [Primary Care Provider] - See instructions Clinical Impressions Clinical Impression: Sinusitis, Alcohol use disorder Instructions Patient Instructions: DI for Sinusitis Discharge ED Provider: Sancho (ED)[facility] HPI General Chief complaint: PAIN Stated complaint: Right side face red ,swollen Time Seen by Provider: 08/26/22 04:15 Mode of Arrival: Family Vehicle Source of Information: Patient and Medical Record Limitations: No Limitations Description of Symptoms (Recalled from ER Triage Doc. by RN): Pt c/o bad sinuses . She states it has been present for about a month. Reports she saw Dr. Greenfield about 3 wks ago for this and it isn't any better. She c/o R eye redness & swelling. Sinus drainage and red and dry R nare. Denies any SOA, cough, fever. History of Present Illness HPI narrative: pt with hx of sinsu dis and was treated a few weeks ago = pt c/o of facial pain and rt periorbital pain - no cough Onset (ago): week(s) Location: face Severity: moderate Consistency: intermittent Associated symptoms: denies other symptoms Treatments prior to arrival: none Related Data Home Medications Medication Instructions Recorded Confirmed aspirin 81 mg tablet,delayed 81 mg PO DAILY heart 07/11/17 06/20/22 release (Aspir-Low) clopidogrel 75 mg tablet 75 mg PO DAILY heart 07/11/17 06/20/22 gabapentin 600 mg tablet 600 mg PO TID Pain 07/11/17 06/20/22 omeprazole 40 mg capsule,delayed 40 mg PO DAILY GERD 07/11/17 06/20/22 release dapagliflozin 10 mg tablet 10 mg PO DAILY 06/20/22 06/20/22 (Farxiga) lisinopril 10 mg tablet 10 mg PO DAILY 06/20/22 06/20/22 metformin 500 mg tablet 1,000 mg PO BID Diabetes 06/20/22 06/20/22 semaglutide 0.25 mg or 0.5 mg (2 0.25 mg SQ WEEKLY 06/20/22 06/20/22 mg/3 mL) subcutaneous pen injector (Ozempic) trazodone 50 mg tablet 100 mg PO HS 06/20/22 06/20/22 Previous Rx's Medication Instructions Recorded cefdinir 300 mg capsule 300 mg PO BID #14 caps 08/26/22 cefdinir 300 mg capsule 300 mg PO BID #14 caps 08/26/22 Allergies Allergy/AdvReac Type Severity Reaction Status Date / Time Penicillins [PENICILLINS] Allergy Unknown UNKNOWN Verified 06/20/22 14:38 REACTION PFSH PFSH Disclaimer: The information contained in this section may have been updated after the patient was seen, as this information can be updated by other users. Social History (Updated 08/26/22 @ 03:44 by Keisha Ma RN) Smoking Status: Current every day smoker tobacco type: cigarettes packs per day: 1 alcohol intake: current substance use type: marijuana current occupational status: employed Travel in the last 8 weeks: None ROS Obtained: Yes All systems reviewed & no additional complaints except as documented Physical Exam General General appearance: alert Head Head exam: normocephalic Eye Eye exam: Present PERRL, EOMI, periorbital swelling and periorbital tenderness ENT ENT exam: Present mucous membranes moist, TM's
[2022-08-26 04:31] VITALS: BP 149/64; PULSE 78; RESP 18; O2SAT 98
[2022-08-26 04:36] LABS: Alanine Aminotransferase 71 U/L (12-78); Albumin Level 4.4 g/dl (3.5-5.0); Alkaline Phosphatase 117 U/L (38-126); Aspartate Amino Transferase 63 U/L (14-36); Bilirubin,Indirect 0.2 mg/dL (0.0-0.9); Bilirubin,Total 0.2 mg/dl (0.2-1.3); Bilirubin,Unconjugated 0.2 mg/dL (0.0-1.1); Ethyl Alcohol 225 mg/dl (0-10); Total Protein,Serum 7.2 g/dl (6.3-8.2)
[2022-08-26 06:31] VITALS: BP 151/89; PULSE 77; RESP 17; TEMP 36.7; O2SAT 94
[2022-08-26 07:17] LABS: Thyroid Stimulating Hormone 1.26 uIU/mL (0.465-4.68)
[2022-08-26 07:40] LABS: T4 (Thyroxine) 12.6 ug/dl (5.53-11.0)
== END 2022-08-26 07:02 | disposition home or self-care (01) ==
PROVIDERS: Emergency Provider Emergency Medicine; PCP Family Medicine
DX: J01.90 Acute sinusitis, unspecified (principal); H57.89 Other specified disorders of eye and adnexa; F10.10 Alcohol abuse, uncomplicated; F17.210 Nicotine dependence, cigarettes, uncomplicated
CPT/HCPCS: 70486; 80048; 80076; 84436; 84443; 85025; 96361; 96374; 96375; 99284; 99285; J0696

== ENCOUNTER 2023-05-23 10:39 | Outpatient (CLI) | payer OTHER, SELFPAY ==
--- NOTE | 2023-05-23 10:43 | CT_ITS ---
FINAL REPORT TECHNIQUE: Thin section axial CT images of the facial bones and sinuses were obtained without contrast. Coronal reformatted images were also obtained.This study was performed with techniques to keep radiation doses as low as reasonably achievable, (ALARA). Individualized dose reduction techniques using automated exposure control or adjustment of mA and/or kV according to the patient''''s size were employed. CLINICAL HISTORY: sinusitis COMPARISON: 08/26/2022 FINDINGS: There is mild mucosal thickening in the maxillary sinus. Maxillary ostia are clear. No fluid levels are identified. There is opacification of multiple right mastoid air cells which is new compared to the prior study The nasal septum is in the midline. No fracture or acute bony abnormality is identified. IMPRESSION: New right mastoiditis. Mucosal thickening maxillary sinuses. Reviewed, Interpreted and Dictated by Kenny Gutiérrez III, MD Transcribed by Mindy Rouse Authenticated and [facility]
== END 2023-05-23 23:59 ==
LOC: RAD 10:40
PROVIDERS: PCP Family Medicine; Visit Provider Nurse Practitioner
DX: J32.9 Chronic sinusitis, unspecified (principal); F17.210 Nicotine dependence, cigarettes, uncomplicated
CPT/HCPCS: 70486

== ENCOUNTER 2023-05-26 13:43 | Outpatient (POV) | payer OTHER, SELFPAY | END 2023-05-26 23:59 | disposition home or self-care (01) | LOC: SC 13:43 | PROVIDERS: Visit Provider Specialist/Technologist | DX: Z00.00 Encounter for general adult medical examination without abnormal findings (principal) ==

== ENCOUNTER 2023-07-27 14:17 | Emergency (ER) | payer OTHER, SELFPAY ==
[2023-07-27 14:30] VITALS: BP 160/86; PULSE 97; RESP 18; TEMP 36.6; O2SAT 96; BMI 31.7
--- NOTE | 2023-07-27 14:53 | EXP.UTC ---
Discharge Plan Disposition Patient Disposition: Home, Self-Care Condition: Good Prescriptions Prescriptions: No Action rosuvastatin 10 mg tablet 10 mg PO DAILY gabapentin 800 mg tablet 800 mg PO TID lisinopril 10 mg tablet 10 mg PO DAILY Farxiga 10 mg tablet 10 mg PO DAILY trazodone 50 mg tablet 100 mg PO HS tizanidine 4 mg tablet 4 mg PO TID PRN (Reason: Sleep) montelukast 10 mg tablet 10 mg PO HS Ozempic 1 mg/dose (4 mg/3 mL) pen injector 1 mg SQ WEEKLY azelastine 137 mcg (0.1 %) aerosol,spray 1 spray intranasal BID Qty: 30 3RF Rx Instructions: administer into each nostril clopidogrel 75 tablet 75 mg PO DAILY Patient Comments: omeprazole 40 capsule,delayed release(DR/EC) 40 mg PO DAILY Patient Comments: metformin 500 mg tablet 1,000 mg PO BID Referrals Follow up/Referrals: Bryce Greenfield MD [Primary Care Provider] - See instructions Activity Restrictions/Add. Instructions Additional Instructions/Restrictions: Keep the wound clean and dry. Keep a dressing on it if you are going to be getting it dirty. Watch the wound for signs of infection, such as redness, swelling, drainage, fever. etc. Take tylenol or ibuprofen for pain. Follow up with your regular doctor. Return or go to your primary care physician in 7 to 10 days to have the sutures removed. GO TO THE ER FOR ANY WORSENING SYMPTOMS OR CONCERNS. Clinical Impressions Clinical Impression: Laceration of right hand Instructions Patient Instructions: DI for Laceration Repair -- Simple Discharge ED Provider: Daquan Feng [facility] General Stated complaint: AO- laceration to top of R hand Mode of Arrival: Ambulatory Source of Information: Patient Limitations: No Limitations Time Seen by Provider: 07/27/23 14:53 Description of Symptoms (Recalled from Triage Doc. by RN): Pt had hand in glass and it broke. Has cut on top of right hand. HEENT Symptoms (Recalled from RN notes): No Resp Symptoms (Recalled from RN notes): No Skin Symptoms (Recalled from RN notes): Yes MS Symptoms (Recalled from RN notes): No Functional Status (Recalled from RN notes): n/a History of Present Illness Provider Complaint: She states that earlier today she was washing dishes when a glass broke and cut her on the top of her right hand. She has a laceration there. She denies any other injury or complaint. Her tetanus immunization is up to date. Related Data Home Medications Medication Instructions Recorded Confirmed clopidogrel 75 mg tablet 75 mg PO DAILY heart 07/11/17 07/27/23 omeprazole 40 mg capsule,delayed 40 mg PO DAILY GERD 07/11/17 07/27/23 release dapagliflozin propanediol 10 mg 10 mg PO DAILY 06/20/22 07/27/23 tablet (Farxiga) lisinopril 10 mg tablet 10 mg PO DAILY 06/20/22 07/27/23 metformin 500 mg tablet 1,000 mg PO BID Diabetes 06/20/22 07/27/23 trazodone 50 mg tablet 100 mg PO HS 06/20/22 07/27/23 gabapentin 800 mg tablet 800 mg PO TID 04/21/23 07/27/23 rosuvastatin 10 mg tablet 10 mg PO DAILY 04/21/23 07/27/23 montelukast 10 mg tablet 10 mg PO HS 05/08/23 07/27/23 semaglutide 1 mg/dose (4 mg/3 mL) 1 mg SQ WEEKLY 05/08/23 07/27/23 subcutaneous pen injector (Ozempic) tizanidine 4 mg tablet 4 mg PO TID PRN Sleep 05/08/23 07/27/23 Previous Rx's Medication Instructions Recorded azelastine 137 mcg (0.1 %) nasal 1 spray intranasal BID #30 mL 05/08/23 spray aerosol Allergies Allergy/AdvReac Type Severity Reaction Status Date / Time Penicillins [PENICILLINS] Allergy Unknown UNKNOWN Verified 07/27/23 14:43 REACTION Worker's Comp Is this a Worker's Comp case?: No [facility] Disclaimer: The information contained in this section may have been updated after the patient was seen, as this information can be updated by other users. Medical History (Updated 07/27/23 @ 14:55 by Daquan Feng APRN) Belching Abdominal pain Mucosal thickening Mastoiditis Tinnitus aurium Chronic dysfunction of both eustachian tubes Tinnitus Alcohol use disorder Hyperlipidemia Hypertension Atypical chest pain Abnormal electrocardiogram [ECG] [EKG] Anxiety Alcohol intoxication Fall Adrenal tumor Renal insufficiency Alcohol abuse Diabetes CAD (coronary artery disease) Palpitation Marijuana use Alcohol intoxication Leukocytosis Accidental overdose Altered mental status Surgical History H/O myringotomy Family History Other Diabetes Social History Smoking Status: Current every day smoker tobacco type: cigarettes packs per day: 1 quit status: considering quitting second hand exposure: Yes alcohol intake: current substance use type: marijuana current occupational status: employed and unemployed Travel in the last 8 weeks: None household members: none housing: apartment lives independently: Yes marital status: single number of children: 1 number of grandchildren: 0 caffeine: No physical activity: walking frequency: daily duration: 30-45 minutes/day do you feel safe at home: Yes victim of physical abuse: No victim of emotional abuse: No victim of sexual abuse: No ROS Obtained: Yes All systems reviewed & no additional complaints except as documented Constitutional Constitutional: Denies chills and Denies fever(s) Eyes Eyes: Denies eye discharge ENT Ears, Nose, Mouth, and Throat: Denies dizziness, Denies otalgia and Denies sore throat Cardiovascular Cardiovascular: Denies chest pain Respiratory Respiratory: Denies shortness of breath, Denies chest congestion, Denies cough, Denies stridor and Denies wheezing Gastrointestinal Gastrointestingal: Denies nausea or vomiting Musculoskeletal Musculoskeletal: Reports system reviewed and no additional complaints, except as documented and Denies arthralgias Integumentary/Breasts Skin/Breast: Reports as per HPI Neurologic Neurologic: Denies dizziness and Denies paresthesias Allergic/Immunologic Allergic/Immunologic: Denies wheezing Physical Exam General General appearance: alert and in no apparent distress Head Head exam: atraumatic, normocephalic and normal inspection Eye Eye exam: Present normal appearance, PERRL and EOMI ENT ENT exam: Present normal exam, normal oropharynx, mucous membranes moist, TM's normal bilaterally and normal external ear exam Neck Neck exam: Present normal inspection, full ROM and trachea midline; Absent meningismus or lymphadenopathy Chest Chest inspection: Present normal inspection and symmetric chest wall rise; Absent tenderness Respiratory Respiratory exam: Present normal lung sounds bilaterally; Absent respiratory distress Cardiovascular Cardiovascular exam: Present regular rate and normal rhythm; Absent JVD Abdominal Exam Abdominal exam: Present soft and normal bowel sounds; Absent distention, tenderness or guarding Extremities Exam Extremities exam: Present normal inspection, full ROM and normal capillary refill; Absent calf tenderness Expanded Upper Extremity Exam Right: Hand exam: Present normal inspection and full ROM; Absent tenderness, swelling, abrasion, laceration, skin avulsion, ecchymosis, deformity, crepitus, dislocation, erythema, amputation, nail avulsion or subungual hematoma Neuromotor exam: Normal wrist extension, thumb opposition, thumb IP flexion, thumb adduction and fingers 2-5 abduction Neurosensory exam: Normal radial nerve, ulnar nerve and median nerve Vascular exam: Normal capillary refill, radial pulse and ulnar pulse Back Exam Back exam: Present normal inspection; Absent tenderness Neurological Exam Neurological exam: Present alert and oriented X3 Psychiatric Psychiatric exam: Present normal affect and normal mood Skin Skin exam: Present other (there is a 1.5 cm linear laceration on the dorsal aspect of her right hand. there is no deep tissue damage or tendon damage. there is no foreign body noted. She has good 2 point touch discrimination distal to the wound.) Lymphatic Lymphatic Findings: no adenopathy Medical Decision Making Medical Records Medical records reviewed: No I reviewed the patient's medical records. Jose Francisco Inquiry Pt receiving controlled substance: No Vital Signs: 07/27/23 14:30 Temperature 97.9 F Temperature Source Oral Pulse Rate [Right Radial] 97 H Respiratory Rate 18 Blood Pressure [Right Arm] 160/86 H Blood Pressure Mean [Right Arm] 110 Blood Pressure Source [Right Arm] Automatic Cuff Blood Pressure Position [Right Arm] Sitting 02 Sat by Pulse Oximetry 96 Oxygen Delivery Method Room Air Procedures Risk/Benefits of Procedure(s) Were Explained: Yes Laceration Laceration 1: Site: hand Side (If applicable): right Size (cm): 1.5 Description: linear Depth: simple, single layer Local Anesthetic: lidocaine 1% Amount of anesthesia used (mL): 1 Pre-repair: wound explored, irrigated extensively and deep structures intact Skin layer closed with: nylon Size (cm): 5-0 Number of sutures: 3 Technique: simple, interrupted (she tolerated this well, good closure was obtained, the edges were approximated well )
[2023-07-27 15:37] VITALS: BP 160/86; PULSE 97; RESP 18; TEMP 36.6; O2SAT 96
--- NOTE | 2023-07-27 15:37 | PC.NURSE ---
Placed 3 stitches on right hand.
== END 2023-07-27 15:37 | disposition home or self-care (01) ==
PROVIDERS: Emergency Provider Nurse Practitioner Family; PCP Family Medicine
DX: S61.411A Laceration without foreign body of right hand, initial encounter (principal); W25.XXXA Contact with sharp glass, initial encounter
CPT/HCPCS: 12001; 99204; 99213; G0463

== ENCOUNTER 2024-08-09 15:34 | Outpatient (CLI) | payer OTHER, SELFPAY | END 2024-08-09 23:59 | disposition home or self-care (01) | LOC: RT 15:35 | PROVIDERS: PCP Family Medicine; Visit Provider Internal Medicine | DX: I25.118 Atherosclerotic heart disease of native coronary artery with other forms of angina pectoris (principal); R94.31 Abnormal electrocardiogram [ECG] [EKG]; R06.00 Dyspnea, unspecified; I10 Essential (primary) hypertension; E78.5 Hyperlipidemia, unspecified | CPT/HCPCS: 93306 ==

== ENCOUNTER 2024-08-23 00:07 | Emergency (ER) | payer OTHER, SELFPAY ==
[2024-08-23 00:19] VITALS: BP 125/76; PULSE 91; RESP 16; TEMP 36.6; O2SAT 96; BMI 49.8
--- NOTE | 2024-08-23 00:30 | CT_ITS ---
PROCEDURE INFORMATION: Exam: CT Abdomen And Pelvis With Contrast Exam date and time: 08/23/2024 1:09 AM Age: 53 years old Clinical indication: Abdominal pain; Additional info: Llq pain/flank pain/back pain to hip TECHNIQUE: Imaging protocol: Computed tomography of the abdomen and pelvis with contrast. Radiation optimization: All CT scans at this facility use at least one of these dose optimization techniques: automated exposure control; mA and/or kV adjustment per patient size (includes targeted exams where dose is matched to clinical indication); or iterative reconstruction. Contrast material: ISOVUE; Contrast volume: 75 ml; Contrast route: IV; COMPARISON: CT - [id number] CT abdomen pelvis w con 01/22/2018 10:54 AM FINDINGS: Lungs: The visualized lung bases are clear. Pleural spaces: There are no pleural effusions. Heart: The visualized portions of the heart are unremarkable. There is no evidence of pericardial fluid collections. Liver: There is diffuse decrease in hepatic/liver parenchymal density consistent with fatty infiltration. There is mild enlargement of the liver. Liver measures 20 cm in CC dimension. Gallbladder and biliary ducts: There has been a cholecystectomy. Pancreas: The pancreas is normal. Spleen: The spleen is normal. An accessory splenule is present. Adrenal glands: There is a 10 x 12 mm nodule in the right adrenal gland, not optimally characterized on current exam. This previously measured approximately 8 x 10 mm suggesting slight increase in size. Definitive diagnosis of this adrenal lesion would require a dedicated adrenal MRI or CT study. There is nodular enlargement of the left adrenal gland measuring 2.3 x 2.0 cm. This previously measured approximately 2.1 x 1.8 cm suggesting slight increase in size. The density of this lesion does not allow definitive diagnosis of a benign adrenal adenoma on this enhanced examination. Kidneys and ureters: There is mild bilateral nonspecific inflammatory perinephric stranding. There are 2 small hypodensities involving the inferior anterior left kidney, too small to adequately characterize. Statistically, these are likely cysts. Stomach and bowel: Apparent mild antral pyloric mural thickening could be on the basis of incomplete distension but cannot exclude gastritis or other inflammatory or infiltrative process. Correlate clinically. Unopacified loops of small bowel within range of normal. The duodenum appears within range of normal. The colon appears within range of normal. Appendix: A normal appendix is identified. Intraperitoneal space: No evidence of intraperitoneal free air. There is no evidence of free intraperitoneal or pelvic fluid. Vasculature: The aorta and iliac arteries demonstrate moderate atherosclerotic calcification. Lymph nodes: There is no evidence of pathologic adenopathy. Urinary bladder: The bladder is normal. Reproductive: The uterus is normal. The ovaries are normal. Bones/joints: There are mild degenerative changes of the hip joints. The thoracolumbar spine demonstrates mild degenerative changes at multiple levels. There is mild anterior spondylo listhesis at L4-L5. There are mild to moderate degenerative changes involving the L4-L5 disc space with vacuum disc phenomenon, endplate discogenic degenerative changes and marginal osteophytes. Mild facet degenerative arthropathy is also present. There are mild degenerative changes of the sacroiliac joints. There is trace retrolisthesis L5-S1. There are few remote rib fractures on the left. Soft tissues: No significant soft tissue edema. IMPRESSION: 1. Mild increase in size of 10 x 12 mm nodule in the right adrenal gland and 2.3 x 2.0 cm left adrenal nodule since 01/22/2018. Definitive diagnosis would require a dedicated adrenal MRI or CT study. 2. Fatty hepatic infiltration. 3. Mild hepatomegaly. 4. Mild stable anterior spondylolisthesis at L4-L5 with moderate degenerative changes. 5. Apparent mild antral pyloric mural thickening could be on the basis of incomplete distension but cannot exclude gastritis or other inflammatory or infiltrative process. Correlate clinically. COMMENTS: Consistent with the [employer]'s Incidental Findings Committee white paper (J Am Jaron Radiol 2018): Any incidental renal lesion less than 1 cm or classified as too small to characterize, or any incidental cystic renal lesion characterized as simple-appearing, is likely benign. No follow-up imaging is recommended for these lesions per consensus recommendations based on imaging criteria.
[2024-08-23] MEDS: ACETAMINOPHEN 1,000MG/100ML VIAL 1000 MG IV (00:45)
[2024-08-23] MEDS: LACTATED RINGERS 1000ML 1,000 ML 999 ML IV (00:46)
[2024-08-23] MEDS: MORPHINE 4MG/ML SYRINGE 4 MG IV (00:46)
[2024-08-23] MEDS: METHOCARBAMOL 500MG TABLET 500 MG PO (00:46)
[2024-08-23] MEDS: ONDANSETRON 4MG/2ML VIAL 4 MG IV (00:46)
[2024-08-23 00:53] LABS: Basophils # 0.1 K/mm3 (0-0.2); Basophils % 0.7 % (0.1-2.0); Eosinophils # 0.2 Kmm3 (0.0-0.4); Eosinophils % 1.4 % (0.1-12.0); Hematocrit 42.5 % (37.0-47.0); Hemoglobin 14.4 g/dL (12.2-16.2); Immature Granulocytes # 0.04 10^3uL; Immature Granulocytes % 0.4 %; Lymphocytes # 4.6 K/mm3 (0.7-4.5); Lymphocytes % 42.4 % (10-50); Mean Corpuscular HGB Conc 33.9 g/dL (31.8-35.4); Mean Corpuscular Hemoglobin 32.9 pg (27.0-31.2); Mean Platelet Volume 9.8 fl (7.4-10.4); Monocytes # 0.7 K/mm3 (0.1-1.0); Monocytes % 6.4 % (1.7-9.3); Neutrophils # 5.3 K/mm3 (1.8-7.8); Neutrophils % 48.7 % (37.0-80.0); Nucleated Red Blood Cells # 0 10^3/uL; Nucleated Red Blood Cells % 0 %; Platelet Count 273 K/mm3 (142-424); Red Blood Count 4.38 M/mm3 (4.20-5.40); Red Cell Distribution Width 12.8 % (11.5-17.5); Red Cell Distribution Width-SD 45.7 fL; White Blood Count 10.9 K/mm3 (4.8-10.8)
[2024-08-23 00:58] LABS: Albumin Level 4.6 g/dl (3.5-5.0); Chloride 103 mmol/L (98-107)
[2024-08-23 00:59] LABS: Potassium 3.9 mmoL/L (3.5-5.1); Sodium 138 mmol/L (136-145)
[2024-08-23 01:01] LABS: Alanine Aminotransferase 54 U/L (12-78); Anion Gap 13.9 mEq/L (5-15); Aspartate Amino Transferase 44 U/L (14-36); Blood Urea Nitrogen 15 mg/dl (7-17); Carbon Dioxide 25 mmol/L (22.0-30.0); Creatinine Clearance Estimated 80 mL/min (50-200); Estimated Glomerular Filt Rate 88 ml/min (>60); GFR (African American) 106 ML/MIN (>60)
[2024-08-23 01:02] LABS: Albumin/Globulin Ratio 1.8 (1.1-1.8); Alkaline Phosphatase 85 U/L (38-126); Bilirubin,Total 0.3 mg/dl (0.2-1.3); Calcium 8.8 mg/dl (8.4-10.2); Globulin 2.5 g/dL (1.3-3.2); Glucose 180 mg/dl (74-100); Total Protein,Serum 7.1 g/dl (6.3-8.2)
[2024-08-23 01:06] LABS: Ethyl Alcohol 282 mg/dl (0-10)
[2024-08-23] MEDS: IOPAMIDOL-370 (76%);100ML BOTTLE 75 ML IV (01:15)
[2024-08-23] MEDS: SODIUM CHLORIDE 0.9% 10ML SYR (RAD ONLY) 10 ML IV (01:15)
[2024-08-23 01:26] LABS: Microscopic, Urine URINE MICROSCOPIC (MICROSCOPIC)
[2024-08-23 01:28] LABS: Appearance,Urine CLEAR (Clear); Bilirubin,Urine Negative (Negative); Blood, Urine TRACE-I (Negative); Color,Urine YELLOW (Yellow); Glucose,Urine (UA) Negative (Negative); Ketones,Urine Negative (Negative); Leukocyte Esterase,Urine Negative (Negative); Nitrate,Urine Negative (Negative); Protein,Urine 1+ (Negative); Urobilinogen,Urine 0.2 EU/dl (0.2)
[2024-08-23 01:39] LABS: Barbiturates Screen,Urine Negative ng/ml (<200); RBC,Urine Occasional #/hpf (0-3)
[2024-08-23 01:40] LABS: Bacteria,Urine Trace /lpf; Benzodiazepines Screen,Urine Negative ng/ml (<200)
[2024-08-23 01:41] LABS: Amphetamine/Metha Screen,Urine Negative ng/ml (<1000)
[2024-08-23 01:43] LABS: Cannabinoid Screen,Urine Positive ng/ml (<50); Cocaine Screen,Urine Negative ng/ml (<300)
[2024-08-23 01:44] LABS: Methadone Screen,Urine Negative ng/ml (<300); Opiate Screen,Urine Positive ng/ml (<300)
[2024-08-23 01:45] LABS: Phencyclidine Screen,Urine Negative ng/ml (<25)
[2024-08-23 01:47] LABS: HIV Combo NEGATIVE (Negative)
[2024-08-23 01:56] LABS: Hepatitis C Ab Qual. W/ RFX NEGATIVE (Negative)
[2024-08-23 02:06] VITALS: BP 130/69; PULSE 83; RESP 16; TEMP 36.8; O2SAT 99
--- NOTE | 2024-08-23 02:39 | ED_ITS ---
Discharge Plan Disposition Patient Disposition: Home, Self-Care Condition: Good Prescriptions Prescriptions: New methocarbamol 500 mg tablet 500 mg PO Q6H PRN (Reason: muscle spasm) Qty: 20 0RF lidocaine 5 % adhesive patch,medicated See Rx Instructions .ROUTE .COMPLEX Qty: 15 0RF Rx Instructions: Apply to most painful area and leave on for 12 hours. Remove and leave off for 12 hours before using any patch No Action rosuvastatin 10 mg tablet 10 mg PO DAILY gabapentin 800 mg tablet 800 mg PO TID clobetasol 0.05 % cream 1 applic topical BID Qty: 15 1RF triamcinolone acetonide 0.5 % cream topical lidocaine 5 % adhesive patch,medicated topical hydroxyzine pamoate 25 mg capsule PO Ozempic 2 mg/dose (8 mg/3 mL) pen injector SQ metoprolol succinate [Toprol XL] 25 mg tablet extended release 24 hr 25 mg PO DAILY Qty: 30 3RF nitroglycerin 0.4 mg tablet, sublingual 0.4 mg sublingual Q5M PRN (Reason: chest pain) Qty: 25 0RF Rx Instructions: do not exceed 3 doses per episode lisinopril 10 mg tablet 10 mg PO DAILY Farxiga 10 mg tablet 10 mg PO DAILY tizanidine 4 mg tablet 4 mg PO TID PRN (Reason: Sleep) montelukast 10 mg tablet 10 mg PO HS azelastine 137 mcg (0.1 %) aerosol,spray 1 spray intranasal BID Qty: 30 3RF Rx Instructions: administer into each nostril clopidogrel 75 mg tablet 75 mg PO DAILY Qty: 90 3RF metformin 500 mg tablet 1,000 mg PO BID Referrals Follow up/Referrals: Bryce Greenfield MD [Primary Care Provider] - See instructions (Reevaluate as soon as available for recheck of left back/flank pain, discussed medication use/misuse, please reevaluate for follow-up of adrenal nodules) Activity Restrictions/Add. Instructions Additional Instructions/Restrictions: You were evaluated in the ER and are appropriate for discharge at this time. Take the prescribed methocarbamol (muscle relaxer) and lidocaine patches as directed. Take Tylenol if needed for pain, do not exceed the recommended dose on the bottle. Due to your diabetes and history of kidney problems, avoid ibuprofen. Do not take other peoples medications. Avoid alcohol with the medications that you have been prescribed. Do not drive or operate machinery after taking the methocarbamol muscle relaxer. Follow-up with your primary care doctor in 1 to 2 days for reevaluation. Discuss with him your visit to the ER as well as the adrenal nodules that require follow-up. Also return to the ER with any new, worsening, or otherwise concerning symptoms. Clinical Impressions Clinical Impression: Acute left flank pain, Alcohol abuse, Acute left-sided low back pain, Adrenal nodule, Opioid use Instructions Patient Instructions: DI for Low Back Pain Print Language Print Language: Frisian Discharge ED Provider: Nish Acevedo General Adult HPI General Chief complaint: Back Pain/Injury Stated complaint: Pain in left side Time Seen by Provider: 08/23/24 00:14 Mode of Arrival: Ambulatory Source of Information: Patient Description of Symptoms (Recalled from ER Triage Doc. 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 Pt reports pain 8/10 and sharp. History of Present Illness HPI narrative: 53-year-old female with history of CAD, renal insufficiency, adrenal tumor, hypertension, hyperlipidemia, alcohol use disorder presents to the ER with complaints of left hip and low back pain which she describes to me as also radiating into the groin progressive for the last 4 days. Patient reports she thinks it is from pushing and pulling the great and she is currently helping take care of. She reports the pain is 8 out of 10 currently and sharp. She has been drinking alcohol today. Patient reports she has taken ibuprofen even though she is not supposed to because of diabetes and her kidneys . She also states she has been taking some of her aunts arthritis medicine . When I asked what it is, she paused, and then said it is [id number]. She reports no numbness, tingling, weakness, bowel or bladder incontinence, midline back pain, dysuria, hematuria, constipation, diarrhea, nausea, vomiting, chest pain, difficulty breathing, fevers, chills, or any other associated symptoms. There was no specific injury that patient recalls causing her pain. Related Data Home Medications ?Medication ?Instructions ?Recorded ?Confirmed dapagliflozin propanediol 10 mg 10 mg PO DAILY 06/20/22 05/11/24 tablet (Farxiga) lisinopril 10 mg tablet 10 mg PO DAILY 06/20/22 05/11/24 metformin 500 mg tablet 1,000 mg PO BID Diabetes 06/20/22 05/11/24 gabapentin 800 mg tablet 800 mg PO TID 04/21/23 05/11/24 rosuvastatin 10 mg tablet 10 mg PO DAILY 04/21/23 05/11/24 montelukast 10 mg tablet 10 mg PO HS 05/08/23 05/11/24 tizanidine 4 mg tablet 4 mg PO TID PRN Sleep 05/08/23 05/11/24 hydroxyzine pamoate 25 mg capsule mg PO 05/11/24 05/11/24 lidocaine 5 % topical patch patch topical 05/11/24 05/11/24 semaglutide 2 mg/dose (8 mg/3 mL) mg SQ 05/11/24 05/11/24 subcutaneous pen injector (Ozempic) triamcinolone acetonide 0.5 % applic topical 05/11/24 05/11/24 topical cream Previous Rx's ?Medication ?Instructions ?Recorded azelastine 137 mcg (0.1 %) nasal 1 spray intranasal BID #30 mL 05/08/23 spray clobetasol 0.05 % topical cream 1 applic topical BID #15 grams 03/03/24 metoprolol succinate 25 mg 25 mg PO DAILY #30 tabs 05/11/24 tablet,extended release 24 hr (Toprol XL) nitroglycerin 0.4 mg sublingual 0.4 mg sublingual Q5M PRN chest 05/11/24 tablet pain #25 tabs clopidogrel 75 mg tablet 75 mg PO DAILY heart #90 tabs 06/10/24 lidocaine 5 % topical patch See Rx Instructions topical 08/23/24 .COMPLEX #15 ea methocarbamol 500 mg tablet 500 mg PO Q6H PRN muscle spasm #20 08/23/24 tabs Allergies Allergy/AdvReac Type Severity Reaction Status Date / Time Penicillins (PENICILLINS) Allergy Unknown UNKNOWN Verified 05/11/24 13:39 REACTION [facility] Disclaimer: The information contained in this section may have been updated after the patient was seen, as this information can be updated by other users. Medical History Belching Abdominal pain Mucosal thickening mucosal thickening maxillary sinuses per CT Sinuses report Mastoiditis Per CT of Sinuses Report Tinnitus aurium per [employer] Chronic dysfunction of both eustachian tubes Tinnitus Alcohol use disorder Hyperlipidemia Hypertension Atypical chest pain Abnormal electrocardiogram [ECG] [EKG] Anxiety Alcohol intoxication Fall Adrenal tumor Renal insufficiency Alcohol abuse Diabetes CAD (coronary artery disease) Palpitation Marijuana use Alcohol intoxication Leukocytosis Accidental overdose Altered mental status Surgical History H/O myringotomy Family History Other Diabetes Social History Smoking Status: Current every day smoker tobacco type: cigarettes packs per day: 1 quit status: considering quitting second hand exposure: Yes alcohol intake: current alcohol intake frequency: a few times a week substance use type: marijuana current occupational status: employed and unemployed Travel in the last 8 weeks?: None household members: none housing: apartment lives independently: Yes marital status: single number of children: 1 number of grandchildren: 0 caffeine: No physical activity: walking frequency: daily duration: 30-45 minutes/day do you feel safe at home: Yes victim of physical abuse: No victim of emotional abuse: No victim of sexual abuse: No Have you lived/traveled outside [place] in past 30 days?: No Contact w/someone who lives/traveled outside US past 30 days?: No Exposure to someone with infectious disease in past 14 days?: No Do you have a fever (greater than 100.4 F or 38 C)?: No Have you tested positive for COVID-19?: No Exposed to someone with COVID-19 in past 14 days?: No Do you have a sore throat?: No Do you have a cough?: No Do you have any weakness?: No Do you have any diarrhea?: No Are you experiencing any unusual bleeding?: No Do you have any muscle aches/pain?: Yes Do you have any abdominal pain?: No Are you experiencing loss of taste or smell?: No Other Medical History Have you received the Flu Vaccine for this season: No Have you received the Pneumonia Vaccine: No ROS Obtained: Yes Systems reviewed as appropriate & no additional complaints except as documented Per HPI Physical Exam General General appearance: alert, in no apparent distress and obese Comment: Appears older than stated age Head Head exam: atraumatic and normocephalic Eye Eye exam: Present PERRL and EOMI ENT ENT exam: Present mucous membranes moist Neck Neck exam: Present normal inspection and full ROM Chest Chest inspection: Present symmetric chest wall rise Respiratory Respiratory exam: Present normal lung sounds bilaterally; Absent respiratory distress, wheezes or stridor Cardiovascular Cardiovascular exam: Present regular rate and normal rhythm Abdominal Exam Abdominal exam: Present soft; Absent distention, tenderness, guarding or rebound Extremities Exam Extremities exam: Present full ROM; Absent edema Back Exam Back exam: Absent tenderness, CVA tenderness (R), CVA tenderness (L), paraspinal tenderness or vertebral tenderness Neurological Exam Neurological exam: Present alert, oriented X3 and other (No saddle anesthesia); Absent motor sensory deficit Psychiatric Psychiatric exam: Present normal affect and normal mood Skin Skin exam: Present warm and dry Medical Decision Making Medical Records Medical records reviewed: Yes I reviewed the patient's medical records. Screening: Per USPSTF and CDC recommendations, given the prevalence of disease in our region, it is our hospital?s policy to screen for HIV and viral Hepatitis for all patients aged 18 and over and those with ongoing risk factors. Jose Francisco Inquiry Pt receiving controlled substance: No Vital Signs: 08/23/24 00:19 08/23/24 02:06 Temperature 97.8 F 98.2 F Temperature Source Oral Oral Pulse Rate 83 Pulse Rate [Left] 91 H Respiratory Rate 16 16 Blood Pressure 130/69 Blood Pressure [Right Arm] 125/76 Blood Pressure Mean [Right Arm] 92 Blood Pressure Source Automatic Cuff Blood Pressure Source [Right Arm] Automatic Cuff Blood Pressure Position Supine Blood Pressure Position [Right Arm] Sitting 02 Sat by Pulse Oximetry 96 Oxygen Delivery Method Room Air Room Air Lab Data Lab Results 08/23/24 00:46: WBC 10.9 H, RBC 4.38, Hgb 14.4, Hct 42.5, MCV 97.0, MCH 32.9 H, MCHC 33.9, RDW 12.8, Plt Count 273, MPV 9.8, Neut % (Auto) 48.7, Lymph % (Auto) 42.4, [place] % (Auto) 6.4, Eos % (Auto) 1.4, Baso % (Auto) 0.7, Neut # (Auto) 5.3, Lymph # (Auto) 4.6 H, [place] # (Auto) 0.7, Eos # (Auto) 0.2, Baso # (Auto) 0.1, Sodium 138, Potassium 3.9, Chloride 103, Carbon Dioxide 25, Anion Gap 13.9, BUN 15, Creatinine 0.70, Estimated Creat Clear 80, Estimated GFR 88, Est GFR ( Amer) 106, Glucose 180 H, Calcium 8.8, Total Bilirubin 0.3, AST 44 H, ALT 54, Alkaline Phosphatase 85, Total Protein 7.1, Albumin 4.6, Globulin 2.5, Albumin/Globulin Ratio 1.8, Plasma/Serum Alcohol 282 H, HCV Ab ALYSON w/Rflx PCR Qn Negative, HIV Ag/Ab Combo Qual Negative 08/23/24 01:22: Urine Color Yellow, Urine Appearance Clear, Urine pH 6.0, Ur Specific [place] 1.010, Urine Protein 1+ A, Urine Glucose (UA) Negative, Urine Ketones Negative, Urine Blood Trace-i, Urine Nitrate Negative, Urine Bilirubin Negative, Urine Urobilinogen 0.2, Ur Leukocyte Esterase Negative, Urine RBC Occasional, Urine WBC None, Ur Squamous Epith Cells 5-10, Urine Bacteria Trace, Urine Opiates Screen Positive H, Urine Methadone Screen Negative, Ur Barbituates Screen Negative, Ur Phencyclidine Scrn Negative, Ur Amphetamines Screen Negative, U Benzodiazepines Scrn Negative, Urine Cocaine Screen Negative, U Marijuana (THC) Screen Positive H 08/23/24 00:46 08/23/24 00:46 Orders (Tests/Meds): ED MEDICATIONS Discontinued Medications Generic Name Dose Route Start Last Admin Trade Name Freq PRN Reason Stop Dose Admin Acetaminophen 1,000 mg 08/23/24 00:30 08/23/24 00:45 Acetaminophen 1,000mg/100ml Vial IV 08/23/24 00:31 1,000 mg ONCE ONE Administration Lactated Ringer's 1,000 mls @ 999 mls/hr 08/23/24 00:30 08/23/24 00:46 Lactated Ringer's 1000 Ml Bag IV 08/23/24 01:30 999 mls/hr .Q1H1M ONE Administration Iopamidol 75 ml 08/23/24 01:14 08/23/24 01:15 Iopamidol-370 (76%);100ml Bottle IV 08/23/24 01:15 75 ml ONCE ONE Administration Methocarbamol 500 mg 08/23/24 00:31 08/23/24 00:46 Methocarbamol 500mg Tablet PO 08/23/24 00:32 500 mg ONCE ONE Administration Morphine Sulfate 4 mg 08/23/24 00:30 08/23/24 00:46 Morphine 4mg/Ml Syringe IV 08/23/24 00:31 4 mg ONCE ONE Administration Ondansetron HCl 4 mg 08/23/24 00:30 08/23/24 00:46 Ondansetron 4mg/2ml Vial IV 08/23/24 00:31 4 mg ONCE ONE Administration Sodium Chloride 10 ml 08/23/24 01:14 08/23/24 01:15 Sodium Chloride 0.9% 10ml Syr (Rad Only) IV 09/22/24 01:13 10 ml NEEDED PRN Administration Maintain IV Site ORDERS Category Date Time Status CT abdomen pelvis w con Stat Cat Scan 08/23/24 00:30 Completed CBC w/Auto Diff [Complete Blood Count Auto Diff] Stat Lab 08/23/24 00:46 Completed CMP [Comprehensive Metabolic Panel] Stat Lab 08/23/24 00:46 Completed Ethanol [Ethyl Alcohol] Stat Lab 08/23/24 00:46 Completed HIV Combo Stat Lab 08/23/24 00:46 Completed Hepatitis C Ab Qual. W/ RFX Stat Lab 08/23/24 00:46 Completed UDS [Drug Screen,Urine] Stat Lab 08/23/24 01:22 Completed Urinalysis and Microscopic Stat Lab 08/23/24 01:22 Completed Medical Decision Narrative: In summary, this 53-year-old female with comorbidities described in the HPI not at goal therapy presents to the emergency department today with reported left low back/hip pain radiating toward the groin. On initial evaluation patient is hemodynamically stable, afebrile, appears slightly intoxicated, she has a benign abdominal exam as well as benign back exam, no tenderness to palpation of her paraspinal muscles, midline back, or CVA area, no tenderness of the left lower quadrant despite patient reporting pain here, no pain with range of motion of the hip, negative straight leg raise, no saddle anesthesia, no bowel or bladder incontinence, no red flag signs of back pain that would be concerning for cauda equina though was considered in my differential. Differential diagnosis includes but is not limited to musculoskeletal pain, strain, also considered urinary tract infection, pyelonephritis, kidney stone, diverticulosis, diverticulitis, among others. Ruling out the most morbid conditions for my assessment. Based on these concerns, I ordered serum labs, CT imaging. Patient received LR, morphine, methocarbamol, Zofran, Tylenol for treatment. Labs personally reviewed demonstrate mild leukocytosis, no anemia, platelets normal, CMP nonactionable, patient has hyperglycemia consistent with her report of diabetes, mild AST elevation at 44 but no other transaminitis. UA with protein but no evidence of findings of infection despite contamination with squamous cells. UDS and EtOH were ordered, EtOH significantly positive at 282 consistent with her known history of alcohol use disorder and her report of alcohol use today, UDS was positive for opioids. I discussed this with the patient, she states she does not take anything like that but I discussed with her that she should not be taking other peoples medication even if she thinks it is [id number] . She was additionally positive for THC. CT imaging of the abdomen and pelvis was personally interpreted, patient has small adrenal nodules but no acute intra-abdominal pathology, degenerative changes of the lumbar spine and SI joints, no acute pathology of the spine or hip appreciated on my personal interpretation. See radiology read for final interpretation which comments on multiple other intra-abdominal abnormalities including growing adrenal lesions. Patient is aware of the adrenal lesions, I discussed with her all incidental findings and recommended close follow-up with her PCP, Dr. Greenfield. She states she is going to call him first thing in the morning for reevaluation. I explained to the patient that I believe the degenerative changes are likely contributing to her symptoms especially with the increased pushing and pulling while caring for her great aunt. Patient was prescribed methocarbamol and lidocaine patches. I counseled her on alcohol cessation and avoidance of illicit substances, especially while taking prescription medications including pain medications and muscle relaxers. I explicitly told her not to drive or operate machinery after taking methocarbamol. Patient was given instructions on symptomatic monitoring and management, follow up instructions, and return precautions for the emergency department. Patient and her son at bedside indicated understanding and was discharged in stable condition. She ambulated independently out of the ER. Critical Care Critical Care Time Critical Care Time: No
== END 2024-08-23 02:14 | disposition home or self-care (01) ==
PROVIDERS: Emergency Provider Emergency Medicine; PCP Family Medicine
DX: M54.59 Other low back pain (principal); R10.32 Left lower quadrant pain; F10.129 Alcohol abuse with intoxication, unspecified; F11.90 Opioid use, unspecified, uncomplicated; F17.210 Nicotine dependence, cigarettes, uncomplicated; E27.9 Disorder of adrenal gland, unspecified; I10 Essential (primary) hypertension; E78.5 Hyperlipidemia, unspecified; Z11.59 Encounter for screening for other viral diseases; Z11.4 Encounter for screening for human immunodeficiency virus [HIV]; Y90.8 Blood alcohol level of 240 mg/100 ml or more
CPT/HCPCS: 74177; 80053; 80307; 80320; 81001; 85025; 86803; 87389; 96361; 96374; 96375; 99285; J0131; J2270; J2405; J7120; Q9967

== ENCOUNTER 2024-12-30 11:13 | Outpatient (CLI) | payer OTHER, SELFPAY ==
--- NOTE | 2024-12-30 | CA_ITS ---
APPROVED REPORT Exam: Pharmacologic Technologist: Jenna Alfaro Ht: 5 ft 4 in Wt: 192 lbs BSA: 1.92 m2 HR: 69 bpm BP: 153/98 mmHg Rhythm: SR Medical History Cardiac Risk Factors: HTN, Hyperlipidemia, Diabetes (non-insulin), Smoking Stress Test Details HR Resting HR: 69 bpm Max Heart Rate (APMHR): 166.173706 bpm Target HR (85% APMHR): 141.018500 bpm Recovery HR: 79 bpm BP Resting BP: 153.0/98.0 mmHg Recovery BP: 205.0/90.0 mmHg ECG Resting ECG: SR Stress ECG Conclusion During lexiscan pt experinced nausea. No arrhythmias noted. Less than .5mm upsloping ST segment changes. Nondiagnostic ECG/lexiscan. Electronically signed by : Ruth Ortiz MD 01/03/2025 12:09:40
--- OUTSIDE RECORDS SUMMARY | 2024-12-30 11:25 | XMS_ITS | Encounter Summary ---
Author Organization [facility] Address [address] [place] [address] Care Team Providers Care Inside B2B Sales Name Role Phone Bryce Greenfield MD Primary Care Provider + Reason for Visit * Reason Comments Med Refill Encounter Details Date Type Department Care Team ([facility] Contact Info) Description 11/23/2024 Refill [facility] MEDICINE [address] [place] [address] Bryce Greenfield MD [address] [facility] [place] [address] Neck pain; Cervical paraspinal muscle spasm Social History Tobacco Use Types Packs/Day Years Used Date Smoking Tobacco: Every Day Smokeless Tobacco: Never Alcohol Use Standard Drinks/Week Comments Defer 0 (1 standard drink = 0.6 oz pur e alcohol) PHQ-2 Answer Date Recorded Retired PHQ-9: Brief Depression Severity Measure Score 0 07/30/2022 PHQ-2 Answer Date Recorded Patient Health Questionnaire-2 Score 0 2024 Comments Unknown Sex and Gender Information Value Date Recorded Sex Assigned at Not on file Legal Sex Female 12:13 PM EDT Gender Identity Not on file Sexual Orientation Not on file documented as of this encounter Plan of Treatment Upcoming Encounters Date Type Department Care Team ([facility] Contact Info) Description 01/07/2025 2:00 PM EDT Office Visit [facility] MEDICINE [address] [facility] [place] [address] Bryce Greenfield MD [address] [facility] [place] [address] documented as of this encounter Visit Diagnoses Diagnosis Neck pain Cervicalgia Cervical paraspinal muscle spasm Spasm of muscle documented in this encounter Care Teams Inside B2B Sales Relationship Specialty Start Date End Date Bryce Greenfield MD [address] [place] [address] PCP - General Family Medicine 07/20/21 documented as of this encounter
--- OUTSIDE RECORDS SUMMARY | 2024-12-30 11:25 | XMS_ITS | Clinical Summary ---
Author Organization [facility] Address [address] [place] [address] Care Team Providers Care Warping Mill Operator Name Role Phone Bryce Greenfield MD Primary Care Provider + Allergies Active Allergy Reactions Criticality Noted Date Comments Penicillins Unknown - High Severity 07/20/2021 Told this from childhood Medications clopidogrel (PLAVIX) 75 MG tablet 05/28/19 22 Active albuterol sulfate HFA 108 (90 Base) MCG/ACT inhaler Inhale 2 puffs Every 4 (Four) Hours As Needed for Wheezing. Active carvedilol (COREG) 12.5 MG tablet Take 1 tablet by mouth 2 (Two) Times a Day With Meals. Active nitroglycerin (NITROSTAT) 0.4 MG SL tablet DISSOLVE 1 TAB UNDER TONGUE AT ONSET OF CHEST PAIN. REPEAT EVERY 5 MINUTES FOR 3 DOSES IF NEEDED. IF NO RELIEF CALL 911. 25 tablet 3 02/09/20 22 Active azelastine (ASTELIN) 0.1 % nasal spray Administer 1 spray into the nostril(s) as directed by provider 2 (Two) Times a Day. 09/26/19 24 Active metoprolol succinate XL (TOPROL-XL) 25 MG 24 hr tablet Take 1 tablet by mouth Daily. 06/10/19 25 Active lisinopril (PRINIVIL,ZESTRIL) 5 MG tabletIndications: Essential hypertension Take 1 tablet by mouth Daily. 30 tablet 5 07/03/19 25 Active traZODone (DESYREL) 50 MG tabletIndications: Primary insomnia Take 2 tablets by mouth every night at bedtime. 60 tablet 5 07/03/19 25 Active rosuvastatin (CRESTOR) 10 MG tabletIndications: ASCVD (arteriosclerotic cardiovascular disease),Mixed hyperlipidemia Take 1 tablet by mouth Daily. 30 tablet 5 07/03/19 25 Active dapagliflozin Propanediol (Farxiga) 10 MG tabletIndications: Type 2 diabetes mellitus with hyperglycemia, without long-term current use of insulin Take 10 mg by mouth Daily. 30 tablet 5 07/03/19 25 Active gabapentin (NEURONTIN) 800 MG tabletIndications: Neck pain Take 1 tablet by mouth 3 (Three) Times a Day. 90 tablet 5 07/03/19 25 Active Semaglutide, 1 MG/DOSE, (Ozempic, 1 MG/DOSE,) 4 MG/3ML solution pen-injectorIndica tions:Type 2 diabetes mellitus with hyperglycemia, without long-term current use of insulin Inject 1 mg under the skin into the appropriate area as directed 1 (One) Time Per Week. 3 mL 6 07/03/19 25 Active clobetasol propionate (TEMOVATE) 0.05 % creamIndications:E czema, unspecified type Apply 1 Application topically to the appropriate area as directed 2 (Two) Times a Day. 60 g 1 07/08/19 25 Active pantoprazole (Protonix) 40 MG EC tablet Take 1 tablet by mouth Daily. 30 tablet 5 09/03/19 25 Active meloxicam (MOBIC) 15 MG tabletIndications: Pain of left sacroiliac joint Take 1 tablet by mouth Daily. 30 tablet 09/03/19 25 Active hydrOXYzine pamoate (VISTARIL) 25 MG capsuleIndications :Eczema, unspecified type TAKE 1 CAPSULE BY MOUTH 3 TIMES A DAY NEEDED FOR ITCHING 30 capsule 3 10/22/19 25 Active metFORMIN (GLUCOPHAGE) 1000 MG tabletIndications: Type 2 diabetes mellitus with hyperglycemia, without long-term current use of insulin TAKE ONE TABLET BY MOUTH 2 TIMES A DAY WITH MEALS 60 tablet 11 10/22/19 25 Active montelukast (SINGULAIR) 10 MG tablet TAKE ONE TABLET BY MOUTH ONCE A DAY 30 tablet 3 10/22/19 25 Active tiZANidine (ZANAFLEX) 4 MG tabletIndications: Neck pain,Cervical paraspinal muscle spasm TAKE ONE TABLET BY MOUTH EVERY 8 HOURS NEEDED FOR MUSCLE SPASMS 90 tablet 2 11/25/19 25 Active EPINEPHrine (EPIPEN) 0.3 MG/0.3ML solution auto-injector injection INJECT 0.3 ML SUBCUTANEOUSLY DIRECTED FOR ONE DOSE 2 each 2 12/01/19 Active Active Problems Problem Noted Date Diagnosed Date ASCVD (arteriosclerotic cardiovascular disease) 07/30/2022 Class 1 obesity due to exces s calories with serious comorbidity and body mass index (BMI) of 31.0 to 31.9 in adult 11/21/2021 Assessment & Plan (04/22/2022 3:10 PM EST): This seems to be benefiting from Ozempic for her diabetes use. Plan is going to be to increase Ozempic to 0.5 mg daily and reassess A1c in 3 months. Weight will be reassessed at that time. Patient's weight is also contributing to elevated liver function tests and is will be reassessed at her 3-month follow-up Cigarette smoker 11/21/2021 Microalbuminuria 11/21/2021 Assessment & Plan (04/22/2022 3:12 PM EST): Abnormal A:C. GFR in normal range. Will need repeat BMP in 3 months follow-up Type 2 diabetes mellitus wit h hyperglycemia, without long-term current use of insulin 07/20/2021 Assessment & Plan (04/22/2022 3:11 PM EST): Diabetes is improving with treatment. Medication changes per orders. Diabetes will be reassessed in 3 months. Control is improving but A1c still remains above goal. Increase Ozempic to 0.5 mg weekly. Reassess in 3 months. Monitor closely for signs of GERD Chronic bilateral low back pain with sciatica Essential hypertension 07/20/2021 Assessment & Plan (04/22/2022 3:10 PM EST): Hypertension is Uncontrolled. Weight loss. Regular aerobic exercise. Stop smoking. Medication changes per orders. Blood pressure will be reassessed in 3 months. Increase lisinopril to 10 mg daily Encounters Date Type Department Care Team Description 11/29/2024 Refill [facility] [address] [place] [phone] Bryce Greenfield MD 11/23/2024 Refill [facility] [address] [place] [address] Bryce Greenfield MD Neck pain; Cervical paraspinal muscle spasm 10/21/2024 Refill [facility] [address] [place], [place] [address] Bryce Greenfield MD Eczema, unspecified type; Type 2 diabetes mellitus with hyperglycemia, without long-term current use of insulin from Last 3 Months Immunizations Immunization Administration Dates Next Due Influenza Seasonal Injectable 01/24/2014 Influenza, Unspecified 01/24/2014 Social History Tobacco Use Types Packs/Day Years Used Date Smoking Tobacco: Every Day Smokeless Tobacco: Never Tobacco Cessation:Ready to Q uit: No; Counseling Given: Not Answered Alcohol Use Standard Drinks/Week Comments Defer 0 [...] on file Sexual Orientation Not on file Last Filed Vital Signs Vital Sign Reading Time Taken Comments Blood Pressure 150/70 2024 3:50 PM EDT Pulse 98 2024 3:50 PM EDT Temperature 36.5 C (97.7 F) 2024 3:50 PM EDT Respiratory Rate 24 2024 3:50 PM EDT Oxygen Saturation 98% 2024 3:50 PM EDT Inhaled Oxygen Concentration - - Weight 87.8 kg (193 lb 9.6 oz) 2024 3:50 P M EDT Height 162.6 cm (5' 4 ) 2024 3:50 PM EDT Body Mass Index 33.23 2024 3:50 PM EDT Plan of Treatment Upcoming Encounters Date Type Department Care Team (Late st Contact Info) Description 01/07/2025 2:00 PM EDT Office Visit [facility] [address] [place] [address] Bryce Greenfield MD [address] [place] [address] Health Maintenance Due Date Last Done Comments Annual Gynecologic Pelvic an d Breast Exam 1970 Hepatitis B (1 of 3 - 19+ 3- dose series) 1989 Pneumococcal Vaccine 50+ (1 of 2 - PCV) 1989 TDAP/TD VACCINES (1 - Tdap) 1989 PAP SMEAR 09/03/1991 MAMMOGRAM 2010 COLOGUARD 09/03/2015 COLON CANCER SCREENING 5 YEA R SIGMOIDOSCOPY 09/03/2015 COLONOSCOPY 09/03/2015 COLORECTAL CANCER SCREENING 09/03/2015 CT COLONOGRAPHY 09/03/2015 FECAL OCCULT BLOOD TEST 09/03/2015 FIT Testing (1 year) 09/03/2015 ZOSTER VACCINE (1 of 2) 2020 ANNUAL PHYSICAL 07/20/2021 HEPATITIS C SCREENING 07/20/2021 DIABETIC FOOT EXAM 10/13/2024 10/14/2023, 0 10/14/2023, 10/14/2023, Additional history exists INFLUENZA VACCINE 11/05/2024 01/24/2014, 01/24/2014 DIABETIC EYE EXAM 12/29/2024 12/30/2023 HEMOGLOBIN A1C 01/02/2025 07/02/2024, 07/0 12/2023, 03/11/2023, Additional history exists LIPID PANEL 07/02/2025 07/02/2024, 07/0 12/2023, 07/30/2022, Additional history exists URINE MICROALBUMIN-CREATININ E RATIO (uACR) 07/02/2025 07/02/2024 Procedures Procedure Name Priority Date/Time Associated Diagnosis Comments POC ALBUMIN/CREATININE RATIO Routine 07/02/2024 4:29 PM EDT Type 2 diabetes mellitus with hyperglycemia, without long-term current use of insulin Microalbuminuria HEMOGLOBIN A1C Routine 07/02/2024 4:13 PM EDT Type 2 diabetes mellitus with hyperglycemia, without long-term current use of insulin ASCVD (arteriosclerotic cardiovascular disease) LIPID PANEL Routine 07/02/2024 4:13 PM EDT Type 2 diabetes mellitus with hyperglycemia, without long-term current use of insulin ASCVD (arteriosclerotic cardiovascular disease) Mixed hyperlipidemia SCANNED - EYE EXAM 12/30/2023 from Last 3 Months or Most Recently Relevant to Health Maintenance Results * (ABNORMAL) POC Albumin/Creatinine Ratio Urine (07/02/2024 4:29 PM EDT) POC ALBUMIN, URINE 150 mg/L POC CREATININE, URINE 200 mg/dL POC Urine Albumin Creatinine Ratio 30-300 mg/g <30 Comment:abnormal Lot Number [id number] Expiration Date 05/07/2025 Urine 07/02/2024 4:29 PM EDT Bryce Greenfield MD POINT OF CARE TEST ORDER JOSEPH Final Result * (ABNORMAL) Hemoglobin A1c (07/02/2024 4:13 PM EDT) Hemoglobin A1C 7.6(H) 4.8 - 5.6 % [facility] Comment: Prediabetes: 5.7 - 6.4 Diabetes: >6.4 Glycemic control for adults with diabetes: <7.0 Blood 07/02/2024 4:13 PM EDT 07/02/2024 Narrative [facility] ([facility]) - 07/03/2024 4:07 AM EDT Performed at: - [facility] [address] [id number] Yarn Winder: Eric Miller PhD, Phone: [phone] Patient Fasting: Y Bryce Greenfield MD LAB BLOOD ORDERABLES Fin al Result [facility] ([facility]) [address] [place] [address], [place] [phone] [facility] [address] [place] [address], [place] [phone] * (ABNORMAL) Lipid Panel (07/02/2024 4:13 PM EDT) Total Cholesterol 209(H) 100 - 199 mg/dL [facility] Triglycerides 324(H) 0 - 149 mg/dL [facility] HDL Cholesterol 72 >39 mg/dL [facility] VLDL Cholesterol Brent[place] 52(H) 5 - 40 mg/dL [facility] LDL Chol Calc (NIH) 85 0 - 99 mg/dL [facility] Blood 07/02/2024 4:13 PM EDT 07/02/2024 Narrative [facility] ([facility]) - 07/03/2024 4:07 AM EDT Performed at: - [address] [id number] Yarn Winder: Eric Miller PhD, Phone: [phone] Patient Fasting: Y Brcye Greenfield MD LAB BLOOD ORDERABLES Fin al Result Performing Organization Address City/State/[facility] Co de Phone Number [email or web address] [place] ([facility]ULATORY) [address] [place] [address], [facility] [address] [place] [address], [place] [phone] * EYE EXAM SCANNED (12/30/2023) Anatomical Region Laterality Modality Other Bryce Greenfield MD CHART REVIEW TABS Fin al Result from Last 3 Months or Most Recently Relevant to Health Maintenance Insurance [facility] [id number] [facility] Care Teams Warping Mill Operator Relationship Specialty Start Date End Date Bryce Greenfield MD [address] [place] [address] PCP - General Family Medicine 07/20/21
--- OUTSIDE RECORDS SUMMARY | 2024-12-30 11:25 | XMS_ITS | Encounter Summary ---
Author Organization [facility] Address [address] [id number] Care Team Providers Care Patternmaker Bench Name Role Phone Bryce Greenfield MD Primary Care Provider + Reason for Visit * Reason Comments Med Refill Encounter Details Date Type Department Care Team ([facility] Contact Info) Description 11/29/2024 Refill [facility] [address] [place] [address] Bryce Greenfield MD [address] [place] [address] Social History Tobacco Use Types Packs/Day Years [...] on file documented as of this encounter Miscellaneous Notes * Telephone Encounter - Savita Saenz MA - 11/29/2024 5:59 PM EDT This is historical for the patient. documented in this encounter Plan of Treatment Upcoming Encounters Date Type Department Care Team (Late Contact Info) Description 01/07/2025 2:00 PM EDT Office Visit [facility] [address] [place] [id number] Bryce Greenfield MD [address] [place] [address] documented as of this encounter Visit Diagnoses Not on filedocumented in this encounter Care Teams Patternmaker Bench Relationship Specialty Start Date End Date Bryce Greenfield MD [address] [place] [address] PCP - General Family Medicine 07/20/21 documented as of this encounter
--- OUTSIDE RECORDS SUMMARY | 2024-12-30 11:25 | XMS_ITS | Encounter Summary ---
Author Organization [facility] Address [address] [place] [id number] Care Team Providers Care Math Specialist Name Role Phone Bryce Greenfield MD Primary Care Provider + Encounter Details Date Type Department Care Team ([facility] Contact Info) Description 07/04/2024 Results Follow-Up [facility] [address] [place] [address] Bryce Greenfield MD [address] [place] [address] Social History Tobacco Use Types Packs/Day Years Used Date Smoking Tobacco: Every Day Smokeless Tobacco: Never Alcohol Use Standard Drinks/Week Comments Defer 0 (1 standard drink = 0.6 oz pur e alcohol) PHQ-2 Answer Date Recorded Retired PHQ-9: Brief Depression Severity Measure Score 0 07/30/2022 PHQ-2 Answer Date Recorded Retired PHQ-9: Brief Depression Severity Measure Score 0 10/14/2023 Comments Unknown Sex and Gender Information Value Date Recorded Sex Assigned at Not on file Legal Sex Female 12:13 PM EDT Gender Identity Not on file Sexual Orientation Not on file documented as of this encounter Miscellaneous Notes * Telephone Encounter - Susanna Aguiar RegSched Rep - 07/06/2024 3:45 PM EDT Hub staff attempted to follow warm transfer process and was unsuccessful Caller: Becki Cruz Relationship to patient: Self Best call back number: [phone] Patient is needing: PATIENT IS RETUNING ALISONS CALL documented in this encounter Plan of Treatment Upcoming Encounters Date Type Department Care Team (Late st Contact Info) Description 01/07/2025 2:00 PM EDT Office Visit [facility] [address] [place] [address] Bryce Greenfield MD [address] [facility] [address] documented as of this encounter Visit Diagnoses Not on filedocumented in this encounter Care Teams Math Specialist Relationship Specialty Start Date End Date Bryec Greenfield MD [address] [place] [address] PCP - General Family Medicine 07/20/21 documented as of this encounter
--- NOTE | 2024-12-30 11:30 | NM_ITS ---
APPROVED REPORT Exam: Nuclear Stress Test Indication: cad, htn, diabetes, hyperlipidemia, tob use, c.p., sob, fatigue, abn ekg Patient Location: Outpatient Stress Tech: Jenna CASTRO Tech:Kat Richards ARRT RT(R)(N) Ht: 5 ft 4 in Wt: 190 lbs Bra Size: d HR: 65 bpm BP: 153/98 mmHg BSA: 1.91 m2 TID: 1.20 BMI: 32.6 History: cad, htn, diabetes, hyperlipidemia, tob use, c.p., sob, fatigue, abn ekg patient could not lay on abdomen for prone images. Procedure: Patient received 0.4 mg of intravenous Lexiscan, resting heart rate 65 bpm, resting blood pressure 153/98 mmHg, with Lexiscan maximum heart rate achieved was 87 bpm which is % of the maximum predicted heart rate and blood pressure was 187/82 mmHg. With Lexiscan, patient denied any complaint of chest pain. Cardiac Stress and Resting SPECT Images: Cardiac Stress and Resting SPECT images were obtained using technetium 99m Myoview 32.3 mCi stress and 10.14 mCi at rest. The patient could not lie on her abdomen. Therefore, prone stress imaging could not be performed. This may affect the diagnostic interpretation of the study findings. Resting and stress imaging in supine positions demonstrate a medium sized, moderate, fixed perfusion defect in the anterior LV wall. There is also borderline increase in transient ischemic dilatation ratio (TID 1.20), which may be suggestive of possible multivessel disease or balanced ischemia. Gated imaging demonstrates mild reduction global LV systolic function. LVEF is calculated at 46%. Conclusion: Medium sized, moderate, fixed perfusion defect in the anterior LV wall. No evidence of reversible ischemia. There is also borderline increase in transient ischemic dilatation ratio (TID 1.20), which may be suggestive of possible multivessel disease or balanced ischemia. Gated imaging demonstrates mild reduction global LV systolic function. LVEF is calculated at 46%. Electronically signed by : Ruth Ortiz MD 01/03/2025 12:06:33
[2024-12-30 13:00] VITALS: BP 153/98; PULSE 69; RESP 14
[2024-12-30] MEDS: ISOTOPE MYOVIEW (PER STUDY) 1 DOSE IV (13:24)
[2024-12-30] MEDS: SODIUM CHLORIDE 0.9% 10ML SYR (RAD ONLY) 10 ML IV ×2 (13:25)
== END 2024-12-30 23:59 | disposition home or self-care (01) ==
LOC: RAD 11:13
PROVIDERS: PCP Family Medicine; Visit Provider Internal Medicine
DX: I25.10 Atherosclerotic heart disease of native coronary artery without angina pectoris (principal); I11.9 Hypertensive heart disease without heart failure; R94.39 Abnormal result of other cardiovascular function study; E11.9 Type 2 diabetes mellitus without complications; E78.5 Hyperlipidemia, unspecified; Z72.0 Tobacco use; R94.31 Abnormal electrocardiogram [ECG] [EKG]
CPT/HCPCS: 78452; 93017; 93018; A9502; J2785

== ENCOUNTER 2025-02-23 08:28 | Day surgery (SDC) | payer OTHER, SELFPAY ==
[2025-02-23] VITALS (11 sets, daily range): BP systolic 159–189; BP diastolic 91–108; PULSE 66–77; RESP 18–20; O2SAT 92–96; BMI 32.4
--- NOTE | 2025-02-23 07:12 | IR_ITS ---
APPROVED REPORT Patient Location: Outpatient PROCEDURES Left heart catheterization Left ventriculogram Selective coronary angiogram Intravascular ultrasound of circumflex artery Drug-eluting stent deployment to the proximal and mid circumflex artery Drug-eluting stent deployment to the third obtuse marginal artery INDICATION Coronary artery disease, Angina pectoris, Greater than 70% plaque burden throughout the circumflex artery, MLA of 3.1 mm??? in the circumflex artery Informed consent was obtained prior to the procedure. COMPLICATIONS NONE Estimated Blood Loss: LESS THAN 10 ML TECHNIQUE One percent lidocaine used to anesthetize the right anterior aspect of the wrist. The right radial artery was accessed via the Seldinger technique. A 6 Ni[place] sheath was placed in the right radial artery. 2.5 mg of Verapamil, 800 mcg of nitroglycerin, 1mg Lidocaine and 5000 U Heparin were given through the arterial sheath. The JL3 catheter was also used to perform left heart catheterization, left ventriculogram and selective coronary angiogram. At the end the diagnostic angiogram therapeutic heparin was administered giving a therapeutic ACT and the guide catheters placed in the left main artery followed by Choice PT extra-support wire placed into the terminal obtuse marginal artery. Intravascular ultrasound probe was advanced which demonstrated a severe and diffusely diseased circumflex artery with an MLA of 3.1 mm???. Because of this a 3 mm x 38 mm [place] frontier stent was placed in the obtuse marginal artery and deployed at 14 [place]. An additional 3.5 x 18 mm [place] frontier stent was placed proximal to the for stent yet still overlapping and deployed at 20 [place]. No fresh 3 mm x 12 mm noncompliant balloon was deployed distally in the 3 mm stent at 22 val[place] pulled back deployed at 24 valentina pulled back again in deployed at 24 val[place]. ERIN-3 flow was present before and after the procedure. 800 mcg of intracoronary nitroglycerin was administered due to a spasm distally from the stent due to a stepdown. At the end excellent angiograph results were obtained therefore the apparatus was removed the sheath was removed and hemostasis was achieved using TR banding patient was transferred to the postoperative in stable condition ANGIOGRAPHIC RESULTS The left main artery Normal The left anterior descending artery Has a stent in the proximal segment which has concentric 40% in-stent restenosis. There is excellent distal transitioning with remaining vessel widely patent The circumflex artery Is large and dominant has a proximal 40 to 50% stenosis with a 60 to 70% stenosis in the proximal portion of the terminal obtuse marginal artery The right coronary artery Nondominant yet still large with diffuse 40 to 50% proximal mid vessel stenosis The CASTRO ventriculogram reveals Preserved at 50% The left ventricular end-diastolic pressure Severely elevated at 35 mmHg IMPRESSION Coronary artery disease as described above Severe disease throughout the circumflex artery as described above with successful stenting of the proximal circumflex artery extending into the proximal and mid terminal obtuse marginal artery Preserved ejection fraction Severely elevated LVEDP PLAN 1. Dual antiplatelet therapy 2. Cardiac rehabilitation 3. Avoidance of tobacco products 4. Risk factor modification 5. Patient may be a candidate for CordelAl device based on severely elevated LVEDP. This should be considered if her symptoms persist in the future 6. LDL less than 55 to be achieved with high intensity statin Electronically signed by : George Sweeney MD 02/23/2025 14:47:38
[2025-02-23 09:00] LABS: Hematocrit 43.5 % (37.0-47.0); Hemoglobin 14.5 g/dL (12.2-16.2); Immature Granulocytes % 0.4 %; Mean Corpuscular HGB Conc 33.3 g/dL (31.8-35.4); Mean Corpuscular Hemoglobin 32.2 pg (27.0-31.2); Mean Corpuscular Volume 96.5 fl (81-99); Nucleated Red Blood Cells % 0 %; Platelet Count 292 K/mm3 (142-424); Red Blood Count 4.51 M/mm3 (4.20-5.40); Red Cell Distribution Width-SD 44.2 fL; White Blood Count 10.1 K/mm3 (4.8-10.8)
[2025-02-23 09:14] LABS: Anion Gap 10.4 mEq/L (5-15); Blood Urea Nitrogen 17 mg/dl (7-17); Calcium 9.8 mg/dl (8.4-10.2); Carbon Dioxide 28 mmol/L (22.0-30.0); Chloride 99 mmol/L (98-107); Creatinine Clearance Estimated 97 mL/min (50-200); Creatinine,Serum 0.90 mg/dl (0.52-1.04); Estimated Glomerular Filt Rate 65 ml/min (>60); GFR (African American) 79 ML/MIN (>60); Glucose 163 mg/dl (74-100); Potassium 4.4 mmoL/L (3.5-5.1); Sodium 133 mmol/L (136-145)
[2025-02-23] MEDS: VERAPAMIL 2.5MG/ML 2ML VIAL 2.5 MG IV (10:06)
[2025-02-23] MEDS: NITROGLYCERIN 800MCG/8ML SYR (CATH LAB) 800 MCG IA ×2 (10:06→10:35)
[2025-02-23] MEDS: 0.9 % SODIUM CHLORIDE 500 ML 999 ML IV (10:06)
[2025-02-23] MEDS: HEPARIN 1,000 UNITS/ML 10ML VIAL (CATH LAB) 5000 UNIT IV ×2 (10:06→10:36)
[2025-02-23] MEDS: LIDOCAINE 1% 10ML MDV 10 ML IJ (10:06)
[2025-02-23] MEDS: HEPARIN 1,000 UNITS/500ML NS (CATH LAB) 3000 UNIT IV (10:07)
[2025-02-23] MEDS: MIDAZOLAM HCL 1MG/ML 5ML VIAL 1 MG IV (10:42)
[2025-02-23] MEDS: FENTANYL 100MCG/2ML VIAL 50 MCG IV (10:43)
[2025-02-23] MEDS: IOPAMIDOL-370 (76%);100ML BOTTLE 100 ML IV (11:15)
--- NOTE | 2025-02-23 13:16 | SUR.PHASEII ---
pt requesting to go home. made aware, per MD pt can go home. d/c teaching completed with family and pt. radial site dsg cdi.
== END 2025-02-23 13:50 | disposition home or self-care (01) ==
PROVIDERS: PCP Family Medicine; Visit Provider Internal Medicine
PROC: 4A023N7 Measurement of Cardiac Sampling and Pressure, Left Heart, Percutaneous Approach (ICD-10-PCS; CPT 93452; principal; 2025-02-23 09:00)
DX: I25.118 Atherosclerotic heart disease of native coronary artery with other forms of angina pectoris (principal); R94.39 Abnormal result of other cardiovascular function study; R94.31 Abnormal electrocardiogram [ECG] [EKG]; R06.09 Other forms of dyspnea; E11.9 Type 2 diabetes mellitus without complications; E78.5 Hyperlipidemia, unspecified; I10 Essential (primary) hypertension; F17.210 Nicotine dependence, cigarettes, uncomplicated; Z79.84 Long term (current) use of oral hypoglycemic drugs; Z79.85 Long-term (current) use of injectable non-insulin antidiabetic drugs; Z79.02 Long term (current) use of antithrombotics/antiplatelets; Z79.899 Other long term (current) drug therapy; Z79.82 Long term (current) use of aspirin; Z88.0 Allergy status to penicillin
CPT/HCPCS: 80048; 85025; 92928; 92929; 92978; 93458; 99152; 99153; C1725; C1769; C1874; C1887; C9600; C9601; J1200; J1644; J2003; J3010; J7040; Q9967